=== PATIENT | female | born 1950 | race Hispanic/Latino ===

== ENCOUNTER 2021-08-04 17:58 | Observation (INO) | payer OTHER ==
[2021-08-04] MEDS ORDERED: NA CHLORIDE 0.9% 1,000 ML ONE (18:44)
--- NOTE | 2021-08-04 20:10 | RAD REPORT ---
EXAM DESCRIPTION: RAD - Chest Single View - 08/04/2021 8:02 pm CLINICAL HISTORY: syncope COMPARISON: Chest Pa And Lat (2 Views) dated 01/14/2017; Abdomen 1 View (KUB) dated 08/28/2016 FINDINGS: Lines: Pacemaker/ICD. Lungs: Pulmonary vascular congestion. Pleural: No significant pleural effusions or pneumothorax. Cardiac: Mild cardiomegaly. Bones: No acute fractures. Other: IMPRESSION: Pulmonary vascular congestion without krystal pulmonary edema.
[2021-08-04 20:18] LABS: Urine Blood Trace-intact (Negative); Urine Glucose Negative (Negative); Urine Protein Negative (Negative)
[2021-08-04 20:31] LABS: Protime INR 1.08
[2021-08-04 20:39] LABS: ALT/SGPT 26 U/L (12-78); AST/SGOT 18 U/L (15-37); Albumin 3.3 g/dL (3.4-5.0); Alkaline Phosphatase 66 U/L (45-117); BUN Blood Urea Nitrogen 16 mg/dL (7-18); Bicarbonate 28 mmol/L (21-32); Bilirubin Direct < 0.1 mg/dL (0-0.2); Bilirubin Total 0.4 mg/dL (0.2-1.0); CKMB Creatine Kinase MB 1.4 ng/mL (1.0-3.6); Creatine Phosphokinase 160 U/L (26-192); Glucose Level 138 mg/dL (74-106); Lipase 102 U/L (73-393); Magnesium 2.2 mg/dL (1.8-2.4); Potassium 3.5 mmol/L (3.5-5.1); Sodium Level 145 mmol/L (136-145); Troponin (Emerg Dept Use Only) < 0.02 ng/mL (0.0-0.045)
[2021-08-04 20:40] LABS: Urine Bacteria <20 /HPF (<20); Urine Mucus 1+ /HPF (NONE SEEN); Urine RBC <5 /HPF (NONE SEEN)
[2021-08-04 20:57] LABS: Absolute Lymphocytes (CBC) 2.7 K/uL (0.7-4.9); Basophils % 0.5 % (0-1.3); Hematocrit 39.2 % (36.0-45.0); Lymphocytes % 31.8 % (15.3-44.8); MPV 7.2 fL (7.6-11.3); RBC Red Blood Cell Count 4.15 M/uL (3.86-4.86)
--- NOTE | 2021-08-04 21:32 | EDPHYS ---
Physician Documentation [facility] Name: Lisandra Gilman Age: 71 yrs Sex: Female : 1950 Arrival Date: 08/04/2021 Time: 18:14 Bed 4 Private MD: ED Physician Kimberly Stanford HPI: 08/04 18:25 This 71 yrs old Female presents to ER via EMS with complaints of Syncope. cp 18:25 The patient has experienced syncope, became unresponsive. Onset: The symptoms/episode cp began/occurred today. Duration: This was a single episode, that lasted an unknown period of time. Context: the episode(s) was witnessed, by family, , occurred at home, occurred while the patient was sitting at computer. Just prior to the episode the patient experienced lightheadedness. Associated injury: The patient did not suffer any apparent associated injury. Associated signs and symptoms: Pertinent negatives: abdominal pain, chest pain, palpitations. Historical: - Allergies: 19:05 No Known Allergies; jl7 - Home Meds: 18:15 carvedilol 25 mg oral tab 1 tab 2 times per day [Active]; clopidogrel 75 mg oral tab 1 bp tab once daily [Active]; potassium chloride 10 mEq Oral cpER 2 caps once daily [Active]; terbinafine HCl 250 mg oral tab 1 tab once daily [Active]; isosorbide mononitrate 30 mg Oral Tb24 1 tab once daily [Active]; Entresto 24-26 mg oral tab 1 tab 2 times per day [Active]; venlafaxine 150 mg oral tr24 1 tab once daily [Active]; - PMHx: 18:20 Depression; GALLSTONES; High Cholesterol; Hypertension; Kidney stones; ss 18:15 Depression; GALLSTONES; High Cholesterol; Hypertension; Kidney stones; bp - PSHx: 18:15 Repair of inguinal hernia; Implantation of cardiac pacemaker; bp - Immunization history:: Adult Immunizations up to date. - Social history:: Smoking status: Patient denies any tobacco usage or history of. ROS: 18:30 Constitutional: Negative for body aches, chills, fever, poor PO intake. cp 18:30 Eyes: Negative for injury, pain, redness, and discharge. cp 18:30 ENT: Negative for ear pain, sore throat, difficulty swallowing, difficulty handling secretions. 18:30 Cardiovascular: Negative for chest pain, edema, palpitations. 18:30 Respiratory: Negative for cough, shortness of breath, wheezing. 18:30 Abdomen/GI: Negative for abdominal pain, nausea, vomiting, and diarrhea. 18:30 Back: Negative for pain at rest, pain with movement. 18:30 : Negative for urinary symptoms. 18:30 Neuro: Positive for syncope, Negative for altered mental status, headache, weakness. 18:30 All other systems are negative. Exam: 18:25 ECG was reviewed by the Attending Physician. cp 18:35 Constitutional: The patient appears in no acute distress, alert, awake, cp non-diaphoretic, non-toxic, well developed, well nourished, obese. 18:35 Head/Face: Normocephalic, atraumatic. cp 18:35 Eyes: Periorbital structures: appear normal, Pupils: equal, round, and reactive to light and accomodation, Extraocular movements: intact throughout, Conjunctiva: normal, no exudate, no injection, Sclera: no appreciated abnormality, Lids and lashes: appear normal, bilaterally. 18:35 ENT: External ear(s): are unremarkable, Nose: is normal, Mouth: Lips: moist, Oral mucosa: moist, Posterior pharynx: Airway: no evidence of obstruction, patent. 18:35 Neck: ROM/movement: is normal, is supple, without pain, no range of motions limitations, no meningismus, no nuchal rigidity. 18:35 Chest/axilla: Inspection: normal, Palpation: is normal, no crepitus, no tenderness. 18:35 Cardiovascular: Rate: normal, Rhythm: regular, Edema: is not appreciated, JVD: is not appreciated. 18:35 Respiratory: the patient does not display signs of respiratory distress, Respirations: normal, no use of accessory muscles, no retractions, labored breathing, is not present, Breath sounds: are clear throughout, no decreased breath sounds, no stridor, no wheezing. 18:35 Abdomen/GI: Inspection: abdomen appears normal, Bowel sounds: active, all quadrants, Palpation: abdomen is soft and non-tender, in all quadrants. 18:35 Back: pain, is absent, ROM is normal. 18:35 Neuro: Orientation: to person, place \T\ time. Mentation: is normal, Cerebellar function: is grossly normal, Motor: moves all fours, strength is normal, Sensation: is normal. Vital Signs: 18:15 BP 58 / 38; Weight 99.79 kg; Height 5 ft. 2 in. (157.48 cm); bp 18:15 BP 96 / 48; Pulse 60; Resp 17; Pulse Ox 96% ; bp 18:30 BP 87 / 48; Pulse 60; Resp 17; Pulse Ox 96% ; bp 19:45 BP 102 / 57; Pulse 60; Resp 16; Pulse Ox 93% on R/A; Pain 0/10; tw5 20:15 BP 131 / 72; Pulse 61; Resp 14; Pulse Ox 100% on R/A; Pain 0/10; tw5 18:15 Body Mass Index 40.24 (99.79 kg, 157.48 cm) bp MDM: 19:00 Patient medically screened. 19:00 Differential Diagnosis: cardiac arrhythmia, cerebrovascular accident, GI bleed, cp seizure, sepsis, transient ischemic attack, vasovagal episode. 21:20 Data reviewed: vital signs, nurses notes, lab test result(s), EKG, radiologic studies, cp plain films. 21:20 Test interpretation: by ED physician or midlevel provider: ECG, plain radiologic cp studies. 21:25 Physician consultation: Kendall CHAIREZ was contacted at 21:15, regarding admission, to the telemetry unit. patient's condition. 21:25 Response to treatment: the patient's symptoms have markedly improved after treatment, and as a result, I will admit patient. 08/04 18:21 Order name: Basic Metabolic Panel [facility] 08/04 18:21 Order name: CBC with Diff [facility] 08/04 18:21 Order name: CPK [facility] 08/04 18:21 Order name: Ckmb [facility] 08/04 18:21 Order name: Hepatic Function; Complete Time: 21:09 [facility] 08/04 21:10 Interpretation: Normal except: ALB 3.3; GLOB 3.7; A/G 0.9. cp 08/04 18:21 Order name: Lipase; Complete Time: 21:09 [facility] 08/04 18:21 Order name: Magnesium; Complete Time: 21:09 [facility] 08/04 18:21 Order name: Protime (+inr); Complete Time: 21:09 [facility] 08/04 18:21 Order name: Ptt, Activated; Complete Time: 21:09 sc2 08/04 18:21 Order name: Troponin (emerg Dept Use Only); Complete Time: 21:09 sc2 08/04 18:21 Order name: Basic Metabolic Panel; Complete Time: 21:09 EDMS 08/04 21:10 Interpretation: Normal except: CL 109; GLUC 138; GFR 67. 08/04 18:21 Order name: CBC with Automated Diff; Complete Time: 21:09 EDMS 08/04 21:10 Interpretation: Normal except: MPV 7.2. cp 08/04 18:21 Order name: Creatine Phosphokinase; Complete Time: 21:09 EDMS 08/04 18:21 Order name: CKMB Creatine Kinase MB; Complete Time: 21:09 EDAL 08/04 18:21 Order name: EKG; Complete Time: 18:22 sc2 08/04 18:21 Order name: Cardiac monitoring; Complete Time: 18:21 sc2 08/04 18:21 Order name: EKG - Nurse/Tech; Complete Time: 18:21 sc2 08/04 19:01 Order name: Urine Microscopic Only; Complete Time: 21:09 08/04 21:10 Interpretation: Normal except: SQEPI 5-10. 08/04 19:01 Order name: Lactate 08/04 19:01 Order name: Procalcitonin; Complete Time: 21:09 08/04 21:11 Interpretation: Reviewed. 08/04 19:01 Order name: Blood Culture Adult (2) cp 08/04 19:02 Order name: Lactate; Complete Time: 20:38 EDAL 08/04 20:38 Interpretation: Abnormal: LAC 2.3. cp 08/04 19:46 Order name: Chest Single View XRAY; Complete Time: 20:26 cp 08/04 20:18 Order name: Urine Dipstick-Ancillary; Complete Time: 20:26 EDAL 08/04 20:26 Interpretation: Normal except: UBLD Trace-intact. cp 08/04 21:14 Order name: SARS-COV-2 RT PCR EDMS 08/04 21:51 Order name: CONS Physician Consult EDMS 08/04 22:47 Order name: NT PRO-BNP EDMS 08/04 22:54 Order name: Glucose, Ancillary Testing EDMS 08/04 18:21 Order name: IV Saline Lock; Complete Time: 19:01 ma2 08/04 18:21 Order name: Labs collected and sent; Complete Time: 20:13 ma2 08/04 18:21 Order name: NPO; Complete Time: 19: ma2 08/04 18:21 Order name: O2 Per Protocol; Complete Time: 18:21 ma2 08/04 18:21 Order name: O2 Sat Monitoring; Complete Time: 18: ma2 08/04 18:21 Order name: Urine Dipstick-Ancillary (obtain specimen); Complete Time: 20: ma2 EC:25 Rate is 60 beats/min. Rhythm is regular, Paced. QRS interval is prolonged at 202 msec. cp QT interval is prolonged at 522 msec. T waves are Inverted in lead aVL. Interpreted by me. Reviewed by me. Administered Medications: 19:38 Drug: NS 0.9% 1000 ml Route: IV; Rate: 1 bolus; Site: right forearm; tw5 20:25 Follow up: IV Status: Order to discontinue infusion; IV Intake: 500ml ; rate changed to tw5 50 ml per hour per providers orders Disposition Summary: 08/04/21 21:31 Hospitalization Ordered Hospitalization Status: Observation cp Provider: Aj Phillips cp Location: Telemetry/MedSurg (Inpatient) cp Condition: Stable cp Problem: new cp Symptoms: have improved cp Bed/Room Type: Standard cp Room Assignment: 229(08/04/21 21:57) Diagnosis - Syncope cp - Hypotension, unspecified cp Forms: - Medication Reconciliation Form cp - SBAR form cp Addendum: 08/09/2021 15:38 Co-signature as Attending Physician, Kimberly Stanford MD PA/CHECK CASHIER's history reviewed, m a2 patient interviewed, and examined. I agree with assessment and care plan and confirm the diagnosis (es) above. Signatures: Dispatcher [employer] EDPorsha Louis RN RN mw Smirch, Shelby, RN RN ss Page, Corey, PA PA cp Leal, Jahala, RN RN jl7 Dileep Yoo RN RN bp Alzahri, Mohammad, MD MD sc2 Qi Valentine tw5 Corrections: (The following items were deleted from the chart) 08/04 18:25 18:15 Home Meds: Coreg 25 mg Oral tab 1 tab 2 times per day; bp bp 21:10 21:10 Normal except. cp cp 21:14 19:47 CORONAVIRUS+MR.LAB.BRZ ordered. EDMS EDMS : 21:13 ECG was reviewed by the Attending Physician. vi cp 21:57 21:31 vi holden
--- NOTE | 2021-08-04 21:32 | ER ---
Nurse's Notes [facility] Name: Lisandra Gilman Age: 71 yrs Sex: Female : 1950 Arrival Date: 08/04/2021 Time: 18:14 Bed 4 Private MD: Diagnosis: Syncope;Hypotension, unspecified Presentation: 08/04 18:15 Chief complaint: EMS states: UNRESPONSIVE FOR 10 MIN AT HOME, NOTABLY NON-RESPONSIVE TO bp NOXIOUS STIMULI, PALE, DIAPHORETIC AND HYPOTENSIVE PER EMS. FAMILY STATES SAME IN PAST 2/2 HTN MEDICATIONS. 18:15 Coronavirus screen: At this time, the client does not indicate any symptoms associated bp with coronavirus-19. Ebola Screen: No symptoms or risks identified at this time. Initial Sepsis Screen: Does the patient meet any 2 criteria? Systolic BP < 90 mmHg. No. Patient's initial sepsis screen is negative. Does the patient have a suspected source of infection? No. Patient's initial sepsis screen is negative. Risk Assessment: Do you want to hurt yourself or someone else? Patient reports no desire to harm self or others. Onset of symptoms was August 04, 2021 at 17:30. Care prior to arrival: Medication(s) given: Normal saline infusion, 500 mL, IV initiated. 20 GA, in the right forearm. 18:15 Method Of Arrival: EMS: [facility] bp 18:15 Acuity: BBO 2 bp Triage Assessment: 18:15 General: Appears in no apparent distress. comfortable, obese, Behavior is calm, bp cooperative, appropriate for age. Pain: Denies pain. EENT: No deficits noted. Neuro: Level of Consciousness is awake, alert, obeys commands, Oriented to Appropriate for age Reports a syncopal episode. Cardiovascular: No deficits noted. Respiratory: No deficits noted. GI: No signs and/or symptoms were reported involving the gastrointestinal system. : No signs and/or symptoms were reported regarding the genitourinary system. Derm: No deficits noted. Musculoskeletal: No deficits noted. Historical: - Allergies: 19:05 No Known Allergies; jl7 - Home Meds: 18:15 carvedilol 25 mg oral tab 1 tab 2 times per day [Active]; clopidogrel 75 mg oral tab 1 bp tab once daily [Active]; potassium chloride 10 mEq Oral cpER 2 caps once daily [Active]; terbinafine HCl 250 mg oral tab 1 tab once daily [Active]; isosorbide mononitrate 30 mg Oral Tb24 1 tab once daily [Active]; Entresto 24-26 mg oral tab 1 tab 2 times per day [Active]; venlafaxine 150 mg oral tr24 1 tab once daily [Active]; - PMHx: 18:20 Depression; GALLSTONES; High Cholesterol; Hypertension; Kidney stones; ss 18:15 Depression; GALLSTONES; High Cholesterol; Hypertension; Kidney stones; bp - PSHx: 18:15 Repair of inguinal hernia; Implantation of cardiac pacemaker; bp - Immunization history:: Adult Immunizations up to date. - Social history:: Smoking status: Patient denies any tobacco usage or history of. Screenin:15 Abuse screen: Denies threats or abuse. Denies injuries from another. Nutritional bp screening: No deficits noted. Tuberculosis screening: No symptoms or risk factors identified. Fall Risk None identified. Assessment: 18:15 General: SEE TRIAGE NOTE. bp 19:14 Reassessment: PHLEBOTOMY CONTACTED FOR BLOOD DRAW. bp 19:33 General: Phlebtomy at the bedside.. tw5 19:38 General: Reports " I am feeling a lot better, I am awake now". tw5 19:44 Pain: Pain. Neuro: Level of Consciousness is awake, alert, obeys commands, Oriented to tw5 person, place, time, situation. Cardiovascular: Rhythm is. 20:15 Respiratory: Airway is patent Trachea midline Respiratory effort is even, unlabored. tw5 Vital Signs: 18:15 BP 58 / 38; Weight 99.79 kg; Height 5 ft. 2 in. (157.48 cm); bp 18:15 BP 96 / 48; Pulse 60; Resp 17; Pulse Ox 96% ; bp 18:30 BP 87 / 48; Pulse 60; Resp 17; Pulse Ox 96% ; bp 19:45 BP 102 / 57; Pulse 60; Resp 16; Pulse Ox 93% on R/A; Pain 0/10; tw5 20:15 BP 131 / 72; Pulse 61; Resp 14; Pulse Ox 100% on R/A; Pain 0/10; tw5 18:15 Body Mass Index 40.24 (99.79 kg, 157.48 cm) bp ED Course: 18:14 Patient arrived in ED. tt3 18:15 Patient has correct armband on for positive identification. Bed in low position. Call bp light in reach. Side rails up X2. 18:15 Maintain EMS IV. Dressing intact. Good blood return noted. Site clean \\T\\ dry. Gauge \\T\\ bp site: 20 GA R FA. 18:16 Dileep Yoo, RN is Primary Nurse. bp 18:19 Triage completed. bp 18:20 Arm band placed on left wrist. ss 18:22 EKG done, by ED staff, reviewed by Kimberly Stanford MD. jl7 18:54 Adeel Gama PA is PHCP. cp 18:54 Kimberly Stanford MD is Attending Physician. cp 19:45 color television console monitor on. Pulse ox on. NIBP on. Door closed. Noise minimized. Lights dimmed. tw5 Moved to private room. Warm blanket given. Verbal reassurance given. 20:02 Chest Single View XRAY In Process Unspecified. EDMS 20:12 Lactate Sent. df1 20:12 Blood Culture Adult (2) Sent. df1 20:12 Procalcitonin Sent. df1 20:12 Lactate Sent. df1 20:12 CKMB Creatine Kinase MB Sent. df1 20:12 Basic Metabolic Panel Sent. df1 20:12 CBC with Automated Diff Sent. df1 20:12 Creatine Phosphokinase Sent. df1 20:13 Basic Metabolic Panel Sent. df1 20:13 CBC with Diff Sent. df1 20:13 CPK Sent. df1 20:13 Ckmb Sent. df1 20:13 Hepatic Function Sent. df1 20:13 Lipase Sent. df1 20:13 Magnesium Sent. df1 20:13 Protime (+inr) Sent. df1 20:13 Ptt, Activated Sent. df1 20:13 Troponin (emerg Dept Use Only) Sent. df1 20:15 Urine collected: clean catch specimen, clear, COVID swab sent to lab. tw5 20:17 Blood Culture Adult (2) Sent. tw5 20:17 Procalcitonin Sent. tw5 20:17 CKMB Creatine Kinase MB Sent. tw5 20:17 Urine Microscopic Only Sent. tw5 20:17 Basic Metabolic Panel Sent. tw5 20:17 CBC with Automated Diff Sent. tw5 20:17 Creatine Phosphokinase Sent. tw5 20:17 Troponin (emerg Dept Use Only) Sent. tw5 20:17 Ptt, Activated Sent. tw5 20:17 Protime (+inr) Sent. tw5 20:17 Hepatic Function Sent. tw5 20:17 Lipase Sent. tw5 20:17 Magnesium Sent. tw5 20:38 Notified Nurse Practitioner and/or Physician Cuff Setter Lockstitch of a critical lab result(s), bb lactate of 2.3 Adeel CHAIREZ notified. 21:30 Aj Phillips is Hospitalizing Provider. cp 22:08 No provider procedures requiring assistance completed. df1 23:06 Patient admitted, IV remains in place. tw5 Administered Medications: 19:38 Drug: NS 0.9% 1000 ml Route: IV; Rate: 1 bolus; Site: right forearm; tw5 20:25 Follow up: IV Status: Order to discontinue infusion; IV Intake: 500ml ; rate changed to tw5 50 ml per hour per providers orders Intake: 20:25 IV: 500ml; Total: 500ml. tw5 Outcome: 21:31 Decision to Hospitalize by Provider. cp 23:06 Admitted to Tele accompanied by tech. tw5 23:06 Condition: stable 23:06 Instructed on the need for admit. 23:07 Patient left the ED. tw Signatures: Dispatcher [employer] EDMS Malika Santiago RN RN bb Smirch, Shelby RN Adeel Echevarria PA PA cp Naila Hackett RN RN Dileep Whyte RN RN Ehsan Kimble tt3 Madyson Dunham df1 Serge Qi tw5 Corrections: (The following items were deleted from the chart) 18:25 18:15 Home Meds: Coreg 25 mg Oral tab 1 tab 2 times per day; bp bp 20:16 20:15 BP 131 / 72; Pulse 61bpm; Resp 14bpm; Pulse Ox 94% RA; Pain 0/10; tw5 tw5 21:14 20:17 CORONAVIRUS+MR.LABTHAD drawn and sent. tw5 EDMS
[2021-08-04] MEDS ORDERED: ONDANSETRON 4 MG/2 ML VIAL IV PRN (22:19)
[2021-08-04] MEDS ORDERED: ALBUTEROL 2.5 MG/3 ML NEB SOL NEB PRN (22:19)
[2021-08-04] MEDS ORDERED: ACETAMINOPHEN 500 MG TAB PO PRN (22:19)
--- NOTE | 2021-08-04 22:31 | P.HP ---
Certification for Inpatient Patient admitted to: Observation With expected LOS: <2 Midnights Patient will require the following post-hospital care: None Practitioner: I am a practitioner with admitting privileges, knowledge of patient current condition, hospital course, and medical plan of care. Services: Services provided to patient in accordance with Admission requirements found in Title 42 Section 412.3 of the Code of Federal Regulations Patient History Date of Service: 08/04/21 Reason for admission: syncope History of Present Illness: Ms. Gilman is a 71 yo F with CAD s/p stent placement, CHF s/p pacemaker/defibrillator and HTN who presents after a syncopal episode. She has been prescribed 25mg BID of carvediolol, and has had hypotensive episodes in response to the medication over the past 5 months so she was instructed to take a quarter pill, increase to half a pill and then take a full one. Today was the first day she was instructed to take a full pill. She took 25mg of carvedilol then after she ate she started to have vision changes. That is the last thing she remembers before waking up in the ambulance. Her says he tried to take her BP at this time but wasn't able to get a reading. She became very cold and clammy and unresponsive so he called 911. She opened her eyes in the ambulance, but didn't respond until arrival. Upon arrival her BP was 58/38, and she received 1L of fluids in the ED. BP now 131/72 at bedside. Currently having no symptoms. Allergies No Known Allergies Allergy (Verified 01/14/17 16:40) Home Medications: Esomeprazole Mag Trihydrate [Nexium] 40 mg PO DAILY 01/14/17 Fesoterodine Fumarate [Toviaz] 4 mg PO DAILY 01/14/17 Lisinopril/Hydrochlorothiazide [Lisinopril-Hctz 20-12.5 mg Tab] 1 tab PO DAILY 01/14/17 Rosuvastatin [Crestor*] 40 mg PO BEDTIME 01/14/17 Venlafaxine HCl [Venlafaxine HCl ER] 150 mg PO DAILY 01/14/17 Amox/Clavulanate [Augmentin 875-125 Tab] 875 mg PO BID #12 tab 01/17/17 Codeine/APAP [Tylenol W/Codeine #3 tab] 1 tab PO Q4HP PRN #30 tab 01/17/17 - Past Medical/Surgical History -: depression -: HTN -: BLADDER INFECTION -: RENAL STONES -: CAD -: CHF -: HYSTERECTOMY -: ARTHROSCOPIC LEFT KNEE -: pacemaker/defibrillator -: cardiac stent -: natalya Psychosocial/ Personal History: - Social History Smoking Status: Never smoker Alcohol use: No CD- Drugs: No Caffeine use: No Place of Residence: Home Review of Systems 10-point ROS is otherwise unremarkable General: Sweats, Malaise, As per HPI Eyes: Vision Change, As per HPI ENT: Unremarkable Respiratory: Unremarkable Cardiovascular: Light Headedness Gastrointestinal: Unremarkable Genitourinary: Unremarkable Musculoskeletal: Unremarkable Integumentary: Unremarkable Neurological: Unremarkable Lymphatics: Unremarkable Physical Examination - Physical Exam General: Alert, In no apparent distress HEENT: Atraumatic, PERRLA, Mucous membr. moist/pink, EOMI, Sclerae nonicteric Neck: Supple, 2+ carotid pulse no bruit, No LAD, Without JVD or thyroid abnormality Respiratory: Clear to auscultation bilaterally, Normal air movement Cardiovascular: Regular rate/rhythm, Normal S1 S2 Gastrointestinal: Normal bowel sounds, No tenderness Musculoskeletal: No tenderness Integumentary: No rashes Neurological: Normal speech, Normal strength at 5/5 x4 extr, Normal tone, Normal affect Lymphatics: No axilla or inguinal lymphadenopathy - Studies Laboratory Data (last 24 hrs) 08/04/21 20:49: WBC 8.60, Hgb 13.0, Hct 39.2, Plt Count 229 08/04/21 20:00: PT 12.4, INR 1.08, APTT 19.8 L 08/04/21 20:00: Sodium 145, Potassium 3.5, BUN 16, Creatinine 0.84, Glucose 138 H, Magnesium 2.2, Total Bilirubin 0.4, AST 18, ALT 26, Alkaline Phosphatase 66, Lipase 102 Assessment and Plan - Problems (Diagnosis) (1) HTN (hypertension) Current Visit: Yes Status: Chronic Qualifiers: Hypertension type: primary hypertension Qualified Code(s): I10 - Essential (primary) hypertension (2) CHF (congestive heart failure) Current Visit: Yes Status: Chronic Qualifiers: Heart failure type: unspecified Heart failure chronicity: chronic Qualif ied Code(s): I50.9 - Heart failure, unspecified (3) CAD (coronary artery disease) Current Visit: Yes Status: Chronic Qualifiers: Coronary Disease-Associated Artery/Lesion type: [place] artery [place] vs. transplanted heart: [place] heart Associated angina: without angina Qualified Code(s): I25.10 - Atherosclerotic heart disease of [place] coronary artery without angina pectoris (4) Syncope Current Visit: Yes Status: Acute Qualifiers: Syncope type: unspecified Qualified Code(s): R55 - Syncope and collapse (5) Hypotension Current Visit: Yes Status: Chronic Qualifiers: Hypotension type: unspecified hypotension type Qualified Code(s): I95.9 - Hypotension, unspecified - Plan cardiology consulted, on tele repeat troponin and EKG in the AM orthostatic VS pending, ECHO pending, BNP pending BP stable, continue to monitor, hold BP medications reconcile and continue other home medications DVT ppx Discharge Plan: Home Plan to discharge in: 24 Hours - Advance Directives Does patient have a Living Will: No Does patient have a Durable POA for Healthcare: No - Code Status/Comfort Care Code Status Assessed: Yes (full code ) Critical Care: No Time Spent Managing Pts Care (In Minutes): 70
[2021-08-04] MEDS ORDERED: POTASSIUM CL SA 10 MEQ TAB PO ONE (22:52)
[2021-08-04 23:45] VITALS: BMI 42.1
[2021-08-05 05:56] LABS: Absolute Lymphocytes (CBC) 3.2 K/uL (0.7-4.9); Basophils % 0.4 % (0-1.3); Lymphocytes % 49.9 % (15.3-44.8); RBC Red Blood Cell Count 4.03 M/uL (3.86-4.86)
[2021-08-05 06:19] LABS: ALT/SGPT 22 U/L (12-78); AST/SGOT 11 U/L (15-37); Alkaline Phosphatase 62 U/L (45-117); BUN Blood Urea Nitrogen 12 mg/dL (7-18); Bicarbonate 25 mmol/L (21-32); Bilirubin Total 0.4 mg/dL (0.2-1.0); Glucose Level 90 mg/dL (74-106); Magnesium 2.2 mg/dL (1.8-2.4); Phosphorus 3.5 mg/dL (2.5-4.9); Potassium 3.7 mmol/L (3.5-5.1); Protein, Total 6.8 g/dL (6.4-8.2); Sodium Level 143 mmol/L (136-145); Troponin I < 0.02 ng/mL (0.0-0.045)
[2021-08-05 06:25] LABS: HDL Cholesterol 65 mg/dL (40-60); LDL Cholesterol, Calculated 67 (<130)
[2021-08-05] MEDS: INSULIN -REGULAR HUMAN 50 UNIT/0.5 ML ML SQ SCH ×2 (07:30→11:30)
[2021-08-05 07:49] LABS: Blood Morphology Comment NOT SEEN (NOT SEEN); Platelet Estimate ADEQ
[2021-08-05] MEDS ORDERED: ENOXAPARIN 40 MG/0.4 ML SQ SCH (09:00)
[2021-08-05] MEDS ORDERED: POTASSIUM CL SA 10 MEQ TAB PO ONE (09:00)
[2021-08-05] MEDS ORDERED: CLOPIDOGREL 75 MG TABLET PO SCH (10:10)
[2021-08-05] MEDS ORDERED: VENLAFAXINE HCL XR 75 MG CAP PO SCH (11:00)
[2021-08-05] MEDS ORDERED: terbinafine HCL 250 MG TAB PO SCH (11:00)
[2021-08-05 11:52] VITALS: O2SAT 97
[2021-08-05 11:56] VITALS: TEMP 98.7
[2021-08-05] MEDS ORDERED: SACUBITRIL/VALSARTAN 24/26 MG TAB PO SCH (13:03)
[2021-08-05] MEDS ORDERED: carvediloL 3.125 MG TAB PO SCH (13:03)
--- NOTE | 2021-08-05 13:12 | P.DS ---
Admission Date: 08/04/21 Discharge Date: 08/05/21 Reason for Admission: syncope - Problems (1) Syncope Current Visit: Yes Status: Acute Qualifiers: Syncope type: unspecified Qualified Code(s): R55 - Syncope and collapse (2) CAD (coronary artery disease) Current Visit: Yes Status: Chronic Qualifiers: Coronary Disease-Associated Artery/Lesion type: inupiat artery [place] vs. transplanted heart: inupiat heart Associated angina: without angina Qualified Code(s): I25.10 - Atherosclerotic heart disease of inupiat coronary artery without angina pectoris (3) CHF (congestive heart failure) Current Visit: Yes Status: Chronic Qualifiers: Heart failure type: unspecified Heart failure chronicity: chronic Qualified Code(s): I50.9 - Heart failure, unspecified (4) HTN (hypertension) Current Visit: Yes Status: Chronic Qualifiers: Hypertension type: primary hypertension Qualified Code(s): I10 - Essential (primary) hypertension (5) Hypotension Current Visit: Yes Status: Chronic Qualifiers: Hypotension type: unspecified hypotension type Qualified Code(s): I95.9 - Hypotension, unspecified Brief History of Present Illness: Ms. Gilman is a 71 yo F with CAD s/p stent placement, systolic CHF s/p pacemaker/defibrillator and HTN who presents after a syncopal episode. She has been prescribed 25mg BID of carvediolol, and has had hypotensive episodes in response to the medication over the past 5 months so she was instructed to take a quarter pill, increase to half a pill and then take a full one. Patient to a full pill and 15 minutes later became unresponsive. Her says he tried to take her BP at this time but wasn't able to get a reading. called 911. BP noted to be 58/38, and she received 1L of fluids in the ED. BP improved to 131/72. Patient was fully awake before arrival to the ED and had no symptoms during examination for admission. Hospital Course: Patient placed under observation on the medical floor. Patient's troponin was negative. She was asymptomatic during the hospital stay. She became hypotensive with systolic blood pressure up to 141. Coreg restarted at 12.5 mg twice daily. Also resumed Entresto. His blood pressure readings were stable on the Coreg and Entresto. Has syncopal episode is drug induced secondary to her antihypertensives. Patient deemed stable for discharge. Vital Signs/Physical Exam: Temp Pulse Resp BP Pulse Ox 98.7 F 60 18 141/75 H 97 08/05/21 11:55 08/05/21 11:55 08/05/21 11:55 08/05/21 11:55 08/05/21 11:55 General: Alert, In no apparent distress, Oriented x3 HEENT: Mucous membr. moist/pink, Sclerae nonicteric Neck: JVD not distended Respiratory: Clear to auscultation bilaterally, Normal air movement Cardiovascular: No edema, Normal pulses, Regular rate/rhythm, Normal S1 S2 Gastrointestinal: Normal bowel sounds, Soft and benign, Non-distended, No tenderness Musculoskeletal: No swelling Integumentary: No rashes Neurological: Normal strength at 5/5 x4 extr Laboratory Data at Discharge: WBC 6.40 K/uL (4.3-10.9) D 08/05/21 05:31 Hgb 12.7 g/dL (12.0-15.0) 08/05/21 05:31 Hct 38.0 % (36.0-45.0) 08/05/21 05:31 Plt Count 234 K/uL (152-406) 08/05/21 05:31 PT 12.4 SECONDS (9.5-12.5) 08/04/21 20:00 INR 1.08 08/04/21 20:00 APTT 19.8 SECONDS (24.3-36.9) L 08/04/21 20:00 Sodium 143 mmol/L (136-145) 08/05/21 05:31 Potassium 3.7 mmol/L (3.5-5.1) 08/05/21 05:31 BUN 12 mg/dL (7-18) 08/05/21 05:31 Creatinine 0.52 mg/dL (0.55-1.3) L 08/05/21 05:31 Glucose 90 mg/dL (74-106) 08/05/21 05:31 Phosphorus 3.5 mg/dL (2.5-4.9) 08/05/21 05:31 Magnesium 2.2 mg/dL (1.8-2.4) 08/05/21 05:31 Total Bilirubin 0.4 mg/dL (0.2-1.0) 08/05/21 05:31 AST 11 U/L (15-37) L 08/05/21 05:31 ALT 22 U/L (12-78) 08/05/21 05:31 Alkaline Phosphatase 62 U/L (45-117) 08/05/21 05:31 Troponin I < 0.02 ng/mL (0.0-0.045) 08/05/21 05:31 Triglycerides 95 mg/dL (<150) 08/05/21 05:31 Cholesterol 151 mg/dL (<200) 08/05/21 05:31 HDL Cholesterol 65 mg/dL (40-60) H 08/05/21 05:31 Cholesterol/HDL Ratio 2.32 08/05/21 05:31 Lipase 102 U/L (73-393) 08/04/21 20:00 Home Medications: Venlafaxine HCl [Venlafaxine HCl ER] 150 mg PO DAILY 01/14/17 Alendronate Sodium [Fosamax] 1 tab PO EVERY 7TH DAY 08/04/21 Clopidogrel Bisulfate [Plavix*] 1 tab PO DAILY 08/04/21 Famotidine 20 mg PO BID 08/04/21 Isosorbide Mononitrate [Isosorbide Mononitrate ER] 30 mg PO DAILY 08/04/21 Potassium Chloride 1 tab PO BID 08/04/21 Sacubitril/Valsartan [Entresto 24 mg-26 mg Tablet] 1 tab PO BID 08/04/21 terbinafine HCL [Terbinafine HCl] 1 tab PO DAILY 08/04/21 carvediloL [Coreg] 12.5 mg PO BID #60 tab 08/05/21 New Medications: carvediloL [Coreg] 12.5 mg PO BID #60 tab Diet: AHA Activity: Ad viraj Followup: NONE,NONE [Primary Care Provider] -
[2021-08-05 14:46] VITALS: BP 154/75
--- NOTE | 2021-08-05 20:39 | CON ---
Date of Consultation: 08/05/2021 Reason For Consultation: Syncope. History Of Present Illness: A 71-year-old female with history of coronary artery disease status post recent stent placement. She has congestive heart failure with ICD and BiV pacemaker in place, prese nted with syncopal episode. She apparently took a 25 mg of carvedilol. 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 The patient also is willing the medicines that she has taken, she is on Imdur as well as Entresto. On arrival to the emergency room, her blood pressure was 58/38, currently with a normal blood pressure. She feels much better. Past Medical History: Hypertension, congestive heart failure, coronary artery disease, and dyslipide christine. Medications: Refer reconciliation sheet for detailed list. Allergies: NO KNOWN DRUG ALLERGIES. Family History: No mature coronary artery disease or cancer. Social History: She does not smoke or drink. Does not use any drugs. Review of Systems: All systems reviewed and they were all negative except for mentioned in HPI. Physical Examination: Vital signs: Temperature is 98.7, pulse 60, breathing at 18, blood pressure 141/75, and saturating 9 7. General: Pleasant on elderly female, in no apparent distress. Head and Neck: Pupils are equal and reactive to light. Intact eye movements. No JVD. No cervical lymphadenopathy. Neck: Supple. Thyroid is not enlarged. Lungs: Clear to auscultation bilaterally. No rhonchi, rales, or crackles. No accessory muscle use. Heart: Regular rate and rhythm. No extra sounds. Abdomen: Soft, nontender. Bowel sounds positive. No organomegaly. No masses or hernia. No rigidi ty or rebound. Extremities: No edema, clubbing, or cyanosis. Intact pulses. Skin: No rash. Neurologic: Alert, awake, and oriented x3. No acute infiltrate. Investigations: Labs were reviewed. Assessment And Recommendations: Syncope due to hypotension. Symptoms have resolved, but blood press ure has improved. I asked her to discontinue the Imdur and to take half a dose of the Coreg twice a day and to continue Entresto. She seems to have a very low ejection fraction, however, the exact sta tus is not known and if the patient's blood pressure holds on the above changes, then she can be grad ually titrated if needed in the future to follow up with her burn nurse within a few days post disc harge to take control over medications and adjust them slowly as needed. /RAJ Voice ID: [id number] Report ID: [id number]
[2021-08-05] MEDS ORDERED: POTASSIUM CL SA 10 MEQ TAB PO SCH (21:00)
[2021-08-05] MEDS ORDERED: FAMOTIDINE 20 MG TAB PO SCH (21:00)
[2021-08-06] MEDS ORDERED: ISOSORBIDE MONO SR 30 MG TAB PO SCH (09:00)
--- NOTE | 2021-08-07 18:32 | EKG ---
Test Date: 2021-08-04 Test Time: 18:17:07 Welder Assistant: TANK MEASUREMENT RESULTS: Intervals: Rate: 60 IA: QRSD: 202 QT: 522 QTc: 522 [place]: P: IA: QRS: -78 T: 94 INTERPRETIVE STATEMENTS: Wide QRS rhythm Left axis deviation Nonspecific intraventricular block Possible Lateral infarct, age undetermined Abnormal ECG Compared to ECG 01/14/2017 17:42:00 Uncertain supraventricular rhythm now present Left-axis deviation now present Myocardial infarct finding now present Sinus rhythm no longer present Left anterior fascicular block no longer present Electronically Signed On 08-07-21 18:24:28 PROJECT PORTFOLIO ANALYST by Zane Joiner
--- OUTSIDE RECORDS SUMMARY | 2021-08-12 13:27 | XMS REPORT | Continuity of Care Document ---
:1950 Author Organization [facility] t Address [address] [place] [address] [address] [place] [address] Care Team Providers Name Role Phone CO19 Attending Clinician Unavailable ANENE Attending Clinician Unavailable Provider, Urgent Care Attending Clinician Unavailable Anene ROLL UP MACHINE OPERATOR Attending Clinician [place] Attending Clinician Unavailable [facility] Attending Clinician Unavailable Payers Payer Name Policy Type Policy Number Effective Date Expiration Date S ourdarshana SRC AN [employer]ET[employer] [id number] 2016 2020 COMPANY 00:00:00 00:00:00 [employer]ET[employer] MEDICARE [id number] 2019 ADV 00:00:00 Problems Condition Condition Condition Status Onset Resolution Last Treating Co mments Source Name Details Category Date Date Treatment Clinician Date No known No known Disease Unive rs active active ity of problems problems [place] [facility] History of History of Problem Resolve [facility] depression depression d it y of [place] [facility] History of History of Problem Resolve Univers gallbladde gallbladde d it y of r disease r disease [place] [facility] History of History of Problem Resolve Univers hypertensi hypertensi d it y of on on [place] [facility] Chronic Chronic Problem Active Univers osteomyeli osteomyeli it y of tis of tis of [place] pelvic pelvic Physici region, region, ans unspecifie unspecifie d d laterality laterality Chronic Chronic Problem Active Univers UTI UTI ity of (urinary (urinary [place] tract tract Physici infection) infection) an s Sciatica Sciatica Problem Active Unive rs of right of right ity of side side [place] without without Physici back pain back pain ans Encounter Encounter Problem Active Uni vers for for ity of administra administra [place] tion of tion of Physici COVID-19 COVID-19 ans vaccine vaccine Allergies, Adverse Reactions, Alerts Allergy Allergy Status Severity Reaction(s) Onset Inactive Treating Comm ents Source Name Type Date Date Clinician No Known DA Active U [facility] Drug 3-04 Allergie 00:00: s 00 NO KNOWN Drug Active Univers ALLERGIE Class ity of S [facility] Social History Social Habit Start Date Stop Date Quantity Comments Source Sex Assigned At [facility] Branch Exposure to Not sure [facility] SARS-CoV-2 (event) Medica l Branch Tobacco use and 2020-08-05 2020-08-05 Never used [facility] exposure 00:00:00 00:00:00 [facility] Smoking Status Start Date Stop Date Source Never smoker [facility] Medications Ordered Filled Start Stop Current Ordering Indication Dosage Frequency Signature Comments Components Source Medication Medication Date Date Medication? Clinician (SIG) Name Name rosuvastati 2019-09 Yes Univer s n 40 mg 1-04 ity of tablet 00:00: [place] 00 [facility] bromphenira 2019-09 Yes Univdino s mine-pseudo 1-04 ity of ephedrine-D 00:00: [place] M 2-30-10 00 Medical mg/5 mL Branch syrup celecoxib 2019-09 Yes Univers 200 mg 0-28 ity of capsule 00:00: [place] 00 [facility] lisinopriL- 2019-09 Yes Univer s hydrochloro 0-28 ity of thiazide 00:00: [place] 20-25 mg 00 Medical per tablet Branch venlafaxine 2020-1 Yes Univer s XR 150 mg 0-28 ity of 24 hr 00:00: [place] capsule 00 Medical Branch omeprazole 2019-09 Yes Univers 40 mg 0-27 ity of capsule 00:00: [place] 00 [facility] cefpodoxime 2019-09 Yes TOME ASHLEE Un christopher 200 mg 0-20 TABLETA ity of tablet 00:00: DOS VECES [place] 00 AL D A Medical Branch phenazopyri 2019-09 Yes TOME ASHLEE Un christopher dine 200 mg 0-20 TABLETA ity o f tablet 00:00: JOSE VECES [place] 00 AL D A Medical Branch MYRBETRIQ Yes TOME ASHLEE Univ ers 50 mg 9-22 TABLETA ity of tablet 00:00: [facility] 00 JAY [facility] cetirizine Yes TOME ASHLEE Uni vers 10 mg 8-26 TABLETA ity of tablet 00:00: POR V A [place] ORAL [facility] Medical LOS D Branch SM SM Yes Univers Esomeprazol Esomeprazol i ty of e Magnesium e Magnesium [place] 20 MG Oral 20 MG Oral Phy sici Capsule Capsule ans Delayed Delayed Release Release Lisinopril Lisinopril Yes Uni vers TABS TABS ity of [place] Physici ans Crestor Crestor Yes Univers TABS TABS ity of [place] Physici ans Venlafaxine Venlafaxine Yes U nivers HCl - 50 MG HCl - 50 MG i ty of Oral Tablet Oral Tablet [place] Physici ans Amoxicillin Amoxicillin Yes U nivers TABS TABS ity of [place] Physici ans Immunizations Ordered Immunization Filled Immunization Date Status Commen ts Source Name Name [employer] 2020-11-04 Completed Universit y of COVID-19 Vacc 30 08:16:00 [place] [facility] MCG/0.3ML Intramuscular Suspension Vital Signs Vital Name Observation Time Observation Value Comments Source Systolic blood 2020-08-05 22:45:00 127 mm[Hg] Univer sity of pressure [facility] Diastolic blood 2020-08-05 22:45:00 85 mm[Hg] Unive rsity of pressure [facility] Heart rate 2020-08-05 22:45:00 75 /min Universi ty of [facility] Body temperature 2020-08-05 22:45:00 36.78 Ann Univ ersity of [place] [facility] Respiratory rate 2020-08-05 22:45:00 20 /min Univ ersity of [facility] Body height 2020-08-05 22:45:00 157.5 cm Universi ty of [place] [facility] Irene Body weight 2020-08-05 22:45:00 99.791 kg Universi ty of [place] [facility] BMI 2020-08-05 22:45:00 40.24 kg/m2 Universi ty of [facility] Oxygen saturation in 2020-08-05 22:45:00 97 /min University of Arterial blood by [facility] Pulse oximetry Branch Systolic blood 2020-08-05 22:45:00 127 mm[Hg] Univer sity of pressure [facility] Diastolic blood 2020-08-05 22:45:00 85 mm[Hg] Unive rsity of pressure [facility] Heart rate 2020-08-05 22:45:00 75 /min Universi ty of [facility] Body temperature 2020-08-05 22:45:00 36.78 Ann Univ [address]ity of [facility] Respiratory rate 2020-08-05 22:45:00 20 /min Univ ersity of [facility] Body height 2020-08-05 22:45:00 157.5 cm Universi ty of [place] [facility] Irene Body weight 2020-08-05 22:45:[address] [facility] BMI 2020-08-05 22:45:00 40.24 kg/m2 Universi ty of [facility] Oxygen saturation in 2020-08-05 22:45:00 97 /min University of Arterial blood by [facility] Pulse oximetry Branch 02 Sat by Pulse 2020-12-03 00:10:07 100 /min Oximetry BMI more than 35 2020-12-03 00:10:07 Y Body Mass Index 2020-12-03 00:10:07 40.2 Height 2020-12-03 00:10:07 157.48\S\62 Pulse Rate 2020-12-03 00:10:07 65 /min Pulse Strength 2020-12-03 00:10:07 Weak /min Pulse Assessment 2020-12-03 00:10:07 Palpation /min Method Pulse Rhythm 2020-12-03 00:10:07 Regular /min Respiratory Rate 2020-12-03 00:10:07 15 /min Weight 2020-12-03 00:10:07 87111.321\S\3520 02 Sat by Pulse 2020-12-02 10:48:27 100 /min Oximetry BMI more than 35 2020-12-02 10:48:27 Y Body Mass Index 2020-12-02 10:48:27 40.2 Height 2020-12-02 10:48:27 157.48\S\62 Pulse Rate 2020-12-02 10:48:27 65 /min Pulse Strength 2020-12-02 10:48:27 Weak /min Pulse Assessment 2020-12-02 10:48:27 Palpation /min Method Pulse Rhythm 2020-12-02 10:48:27 Regular /min Respiratory Rate 2020-12-02 10:48:27 15 /min Weight 2020-12-02 10:48:27 35140.321\S\3520 Body Mass Index 2020-12-02 06:31:45 40.2 Height 2020-12-02 06:31:45 157.48\S\62 Weight 2020-12-02 06:31:45 99040.321\S\3520 Body Mass Index 2020-12-02 06:19:32 40.2 Height 2020-12-02 06:19:32 157.48\S\62 Weight 2020-12-02 06:19:32 75424.321\S\3520 Body Mass Index 2020-12-01 13:20:48 40.2 Height 2020-12-01 13:20:48 157.48\S\62 Weight 2020-12-01 13:20:48 86052.321\S\3520 Body Mass Index 2020-12-01 11:20:27 40.2 Height 2020-12-01 11:20:27 157.48\S\62 Weight 2020-12-01 11:20:27 27928.321\S\3520 Body Mass Index 2020-12-01 10:45:06 40.2 Height 2020-12-01 10:45:06 157.48\S\62 Weight 2020-12-01 10:45:06 65892.321\S\3520 Body Mass Index 2020-12-01 10:01:07 40.2 Height 2020-12-01 10:01:07 157.48\S\62 Weight 2020-12-01 10:01:07 53432.321\S\3520 WEIGHT 2020-12-01 10:00:00 99.442214 kg HEIGHT 2020-12-01 10:00:00 157.48 cm Procedures Procedure Date / Time Performing Clinician Source Performed CT Pelvis wo contrast 2019-08-05 00:00:00 [facility] [id number] Physicians History of Knee [facility] xa arthroscopy Physicians Encounters Start End Encounter Admission Attending Care Care Encounter Source Date/Time Date/Time Type Type Clinicians Facility Department ID 2020-11-04 2020-11-04 Appointmen CO19, [facility] UTP [id number] Univers 13:30:00 13:30:00 t; CO19, NURSE-COOLE i ty of NURSE-COOL [facility] Physici ans 2020-08-05 2020-08-05 Outpatient R MANISH, [facility] [id number] Univers [facility]:20[facility]00 [facility] 2020-08-05 2020-08-05 Urgent Provider, [facility] [id number] Univers 16:41:50 17:01:50 Care [id number] [id number] Kehinde as Professio [phone] Ia dical [address] 2020-08-05 2020-08-05 Urgent Provider, [facility] [id number] 16:41:50 17:01:50 Care [facility] [id number] Care [place] [id number] Professio [phone] nal [facility] Office [address] 2019-08-18 2019-08-18 Luis E RAO [facility] Orthopedics [id number] Univers 11:00:00 11:00:00 t; [facility]OD [facility] Adrianna Physici ans 2019-08-05 2019-08-05 Luis E RAO [facility] Orthopedics [id number] Univers 10:30:00 10:30:00 t; ROD [facility]. [facility] M.Michael Physici ans 2019-04-30 2019-04-30 [facility] XXXOrthoped [id number] Univers 10:30:00 10:30:00 t; ROD RAO M.D. [facility] ity [facility] M.Michael Physici ans 2019-01-28 2019-01-28 [facility] UTP [id number] Univers 10:15:00 10:15:00 t; ROD RAO M.D. [place] [facility] [place] MZoeDZoe [place] ans 2019-01-21 2019-01-21 [facility] UTP [id number] Univers 11:00:00 11:00:00 t; ROD RAO M.D. [facility] [place] MOleg [place] 2019-01-07 2019-01-07 [facility] UTP [id number] Univers 09:45:00 09:45:00 t; ROD RAO M.D. [facility]anna Physici ans 2018-11-06 2018-11-06 [facility] UTP [id number] Univers 11:15:00 11:15:00 t; [facility]OD [facility] [place] 2018-10-01 2018-10-01 [facility] UTP [id number] Univers 15:30:00 15:30:00 t; [facility], DEVICE ity of DEVICE [place] Physici ans 2018-09-04 2018-09-04 [facility] UTP [id number] Univers 10:45:00 10:45:00 t; ROD RAO M.D. [place], [place] Adrianna Physici ans 2018-08-26 2018-08-26 [facility] UTP [id number] Univers 10:00:00 10:00:00 t; [facility]OD [facility] Results Test Description Test Time Test Results Result Source Comments Comments [U] XRAY PELVIS Images acquired, not University of 1 [place] 2 S [id number] [place] 10:39[place] accession number. Physici ans XR Chest 1 View 2018-08-02 Patient: KATHRINE, Frontal 0 KRYSTAL LOMBARDO 11:51:56 Date/Time08/29/2018 11:35 CSTReason for Exampre op;Other (please specify)ReportHISTORY: Female, 68 years of age with preoperative assessmentLocation code: X97TGAL: CHEST X-RAY, ONE VIEWCOMPARISON: NoneCOMMENT: Frontal view of the chest is provided. No focal infiltrate, consolidation, mass lesion, or effusion is seen. Cardiac silhouette is within normal limits. No acute bony abnormalities.IMPRESSI ON: No acute disease. Final Dictated by: Mere Allen LDictated DT/TM: 08/29/2018 11:51 amSigned by: Mere Allen LSigned (Electronic Signature): 08/29/2018 11:51 am
== END 2021-08-05 16:46 | disposition home or self-care (01) ==
LOC: ER 17:58 → 2ND 21:51
PROVIDERS: ADMIT Internal Medicine; ATTEND Internal Medicine
DX: R55 Syncope and collapse (principal); I95.9 Hypotension, unspecified; I25.10 Atherosclerotic heart disease of native coronary artery without angina pectoris; I11.0 Hypertensive heart disease with heart failure; I50.22 Chronic systolic (congestive) heart failure; T46.5X5A Adverse effect of other antihypertensive drugs, initial encounter; Y92.009 Unspecified place in unspecified non-institutional (private) residence as the place of occurrence of the external cause; Z95.5 Presence of coronary angioplasty implant and graft; Z95.810 Presence of automatic (implantable) cardiac defibrillator; Z20.822 Contact with and (suspected) exposure to COVID-19
CPT/HCPCS: 93005 ×3; 87040 ×2; 85025 ×2; 80048; 36415; 83735 ×2; 82550; 84100; 85610; 80061; 82947 ×3; 80076; 83605 ×2; 85730; 84443; 84484 ×2; 82553; 84439; 83690; 80053; 84145; 83880; 71045; 94760 ×2; 96360; 99285; U0003; J1650; J7030; G0378 ×2; 81003; 81015

== ENCOUNTER 2022-01-22 11:10 | Day surgery (SDC) | payer OTHER ==
--- NOTE | 2022-01-16 14:02 | RAD REPORT ---
EXAM DESCRIPTION: RAD - Chest Pa And Lat (2 Views) - 01/16/2022 1:49 pm CLINICAL HISTORY: pre op for heart catherization COMPARISON: Portable 08/04/2021, two view chest 01/14/2017 TECHNIQUE: Frontal and lateral views of the chest were obtained. FINDINGS: The lungs are clear of acute finding. Interstitial pattern matches comparison. Defibrillat or is in place. No failure or volume overload. Heart size is normal and central vasculature is within normal limits. No pleural effusion or pneu mothorax seen. No acute bony finding noted. No aortic abnormality. IMPRESSION: No acute cardiopulmonary process. No significant change from comparison study.
[2022-01-16 14:25] LABS: Absolute Lymphocytes (CBC) 3.2 K/uL (0.7-4.9); Hematocrit 38.3 % (36.0-45.0); Lymphocytes % 47.8 % (15.3-44.8); MPV 7.5 fL (7.6-11.3); RBC Red Blood Cell Count 4.12 M/uL (3.86-4.86)
[2022-01-16 14:29] LABS: Protime INR 1.06
[2022-01-16 14:36] LABS: BUN Blood Urea Nitrogen 16 mg/dL (7-18); Bicarbonate 27 mmol/L (21-32); Glucose Level 89 mg/dL (74-106); Potassium 3.8 mmol/L (3.5-5.1); Sodium Level 142 mmol/L (136-145)
[~2022-01-22 11:10] MED LIST: HEPA 1000U/500MLS 0 UNIT/0 ML BAG IV ONE; LIDOCAINE 1% 20 ML MDV ONE; NA CHLORIDE 0.9% 0 ML ONE
[2022-01-22] MEDS ORDERED: NA CHLORIDE 0.9% 500 ML ONE (11:19)
[2022-01-22] MEDS ORDERED: HEPA 1000U/500MLS 2,000 UNIT/1,000 ML BAG IV ONE (11:29)
[2022-01-22 11:34] VITALS: TEMP 97.5
[2022-01-22] MEDS ORDERED: MIDAZOLAM HCL 2 MG/2 ML INJ ONE (11:59)
[2022-01-22] MEDS ORDERED: FENTANYL CITR 100 MCG/2 ML ONE (11:59)
[2022-01-22] MEDS ORDERED: NITROGLYCERIN/D5W 0 MG/0 ML BTL IV ONE (12:00)
[2022-01-22] MEDS ORDERED: ATROPINE SULF 1 MG/10 ML SYR IV ONE (12:00)
[2022-01-22] MEDS ORDERED: VERAPAMIL HCL 10 MG/4 ML VIAL IV ONE (12:00)
[2022-01-22] MEDS ORDERED: NITROGLYCERIN 100 MCG/ML SYR (for cath lab use only) IV ONE (12:00)
[2022-01-22] MEDS ORDERED: NITROGLYCERIN/D5W 25 MG/250 ML BTL IV ONE (12:00)
[2022-01-22] MEDS ORDERED: HEPARIN 5000 UNIT/ML 1 ML VIAL ONE (12:00)
[2022-01-22 13:47] VITALS: BP 116/63; O2SAT 96
--- NOTE | 2022-01-22 14:05 | OP ---
Date of Procedure: 01/22/2022 Surgeon: FREDO VILLATORO Procedures Performed: 1.Selective coronary angiogram. 2.Left heart catheterization. 3.LV-gram. Indication: Abnormal stress test with low ejection fraction. Access: Right radial artery 6-[place]ai[place]ese closed with TR band. Complications: None. Bleeding: Less than 10 mL. Sedation Used: None. Description Of Procedure: After risks, benefits, and alternatives were explained the patient agreed to the procedure and signed informed consent. The patient was brought into cardiac catheterization l aboratory, prepped and draped in the usual sterile fashion. Then, I accessed right radial artery usi ng pediatric micropuncture kit and ultrasound guidance of a 6-Taiwanese sheath and took a 5-[place]ai[place] Sheldon 4.0 catheter into the aortic root, engaged left main and right coronary artery, took standard views, then exchanged for an angled pigtail catheter across the aortic valve over the wire and recorded LVE DP. LV-gram was done and pullback did not record any gradient. I removed the catheter and sheath, p laced TR band with good hemostasis. Findings: 1.Left main; large, normal. 2.LAD; large vessel with patent stent in the midportion and then normal diagonal branches. No signi ficant disease in the LAD. 3.Left circumflex; large, codominant with mid focal 30% stenosis. 4.RCA; large, codominant. No significant disease. 5.Normal LVEDP of 10 mmHg. 6.Normal ejection fraction of 55% to 60% and normal wall motion. Conclusion: 1.Mild nonobstructive coronary artery disease with patent mid LAD stent. 2.Normal LVEDP and normal LVEF. Plan: Medical management. SR/MODL Voice ID: [id number] Report ID: [id number]
== END 2022-01-22 14:16 | disposition home or self-care (01) ==
LOC: CCL 11:10
PROVIDERS: ATTEND Internal Medicine
DX: I25.10 Atherosclerotic heart disease of native coronary artery without angina pectoris (principal); I11.0 Hypertensive heart disease with heart failure; I50.9 Heart failure, unspecified; E78.5 Hyperlipidemia, unspecified; E11.9 Type 2 diabetes mellitus without complications; Z95.5 Presence of coronary angioplasty implant and graft; Z79.82 Long term (current) use of aspirin; Z79.02 Long term (current) use of antithrombotics/antiplatelets; Z79.84 Long term (current) use of oral hypoglycemic drugs; Z79.899 Other long term (current) drug therapy; Z20.822 Contact with and (suspected) exposure to COVID-19
CPT/HCPCS: 85025; 80048; 36415; 85610; 82947; 85730; 71046; 93458; 76937; U0003; C1893; Q9967; J1644 ×2; J7040; J2250; J3010

== ENCOUNTER 2022-05-31 12:00 | Emergency (ER) | payer OTHER ==
--- OUTSIDE RECORDS SUMMARY | 2022-05-31 12:04 | XMS REPORT | Continuity of Care Document ---
:[address] [facility] t Address [address] [place] [address] Dr. [address]. [address] [place] [address] Care Team Providers Name Role Phone Alex Attending Clinician Unavailable [facility]_Walk-In Attending Clinician Unavailable Radha Camacho Attending Clinician Unavailable CO19, NURSEABHIJEET Attending Clinician Unavailable MERE LOCKHART Attending Clinician Unavailable Provider, [facility] Attending Clinician Unavailable Mere Guallpa Attending Clinician ROD RAO M.D. Attending Clinician Unavailable SOUTH, DEVICE Attending Clinician Unavailable Alex Admitting Clinician Unavailable [facility]_Walk-In Admitting Clinician Unavailable Payers Payer Name Policy Type Policy Number Effective Date Expiration Date S sherlyn AETNA (MEDICARE [id number] 2021 REPLACEMENT PPO) 00:00:00 IOANA FOOTE AETNA [id number] 2016 2020 COMPANY 00:00:00 00:00:00 AETNA MEDICARE ADV [id number] 2019 00:00:00 Problems Condition Condition Condition Status Onset Resolution Last Treating Co mments Source Name Details Category Date Date Treatment Clinician Date History of History of Problem Resolve [facility] gallbladde gallbladde d Ph ysici r disease r disease ans History of History of Problem Resolve UT hypertensi hypertensi d Ph ysici on on ans Chronic Chronic Problem Active UT osteomyeli osteomyeli Ph ysici tis of tis of ans pelvic pelvic region, region, unspecifie unspecifie d d laterality laterality Chronic Chronic Problem Active UT UTI UTI Physici (urinary (urinary ans tract tract infection) infection) Sciatica Sciatica Problem Active UT of right of right Physic i side side ans without without back pain back pain Encounter Encounter Problem Active UT for for Physici administra administra an s tion of tion of COVID-19 COVID-19 vaccine vaccine No known No known Disease Unive rs active active ity of problems problems [facility] History of History of Problem Resolve UT depression depression d Ph ysici ans Allergies, Adverse Reactions, Alerts Allergy Allergy Status Severity Reaction(s) Onset Inactive Treating Comm ents Source Name Type Date Date Clinician No Known DA Active U [facility] Drug 3-04 Allergie 00:00: s 00 NO KNOWN Drug Active [facility] ALLERGIE Class ity of S [facility] Social History Social Habit Start Date Stop Date Quantity Comments Source Sex Assigned At [facility] Medical Branch Exposure to Not sure [facility] SARS-CoV-2 (event) Medica l Branch Tobacco use and 2020-08-05 2020-08-05 Never used [facility] exposure 00:00:00 00:00:00 Medical [place] Smoking Status Start Date Stop Date Source Never Smoker [facility] Medications Ordered Filled Start Stop Current Ordering Indication Dosage Frequency Signature Comments Components Source Medication Medication Date Date Medication? Clinician (SIG) Name Name carvedilol carvedilol No carvedilol [place] 25 mg 25 mg 2-09 25 mg da tablet 1 tablet 1 00:00: tablet 1 M edical tab po qd tab po qd 00 tab po qd Group rosuvastati 2019-09 Yes Univer s n 40 mg 1-04 ity of tablet 00:00: [place] 00 Medical Branch bromphenira 2019-09 Yes Univer s mine-pseudo 1-04 ity of ephedrine-D 00:00: [place] M 00 Medical mg/5 mL Branch syrup celecoxib 2019-09 Yes Univers 200 mg 0-28 ity of capsule 00:00: [place] 00 Medical Branch lisinopriL- 2019-09 Yes Univer s hydrochloro 0-28 ity of thiazide 00:00: [place] 20-25 mg 00 Medical per tablet Branch venlafaxine 2019-09 Yes Univer s XR 150 mg 0-28 ity of 24 hr 00:00: [place] capsule 00 Medical Branch omeprazole 2019-09 Yes Univers 40 mg 0-27 ity of capsule 00:00: [place] 00 Medical Branch cefpodoxime 2019-09 Yes TOME ASHLEE Un christopher 200 mg 0-20 TABLETA ity [facility] phenazopyri 2019-09 Yes TOME ASHLEE Un christopher dine 200 mg 0-20 TABLETA ity o f tablet 00:[facility] Branch MYRBETRIQ Yes TOME ASHLEE Univ ers 50 mg 9-22 TABLETA ity of tablet 00:00: [facility] 00 JAY Medical Branch cetirizine Yes TOME ASHLEE Uni vers 10 mg 8-26 TABLETA ity of tablet 00:00: POR V A [place] 00 [facility] LOS D Branch alendronate alendronate No alendronat [place] 70 mg 70 mg e 70 mg da tablet TAKE tablet TAKE tablet Medical 1 TABLET BY 1 TABLET BY TAKE 1 Group MOUTH ONCE MOUTH ONCE TABLET BY A WEEK A WEEK MOUTH ONCE A WEEK clopidogrel clopidogrel No clopidogre [place] 75 mg 75 mg l 75 mg da tablet TAKE tablet TAKE tablet Medical 1 TABLET BY 1 TABLET BY TAKE 1 Group MOUTH ONCE MOUTH ONCE TABLET BY DAILY DAILY MOUTH ONCE DAILY Entresto 24 Entresto 24 No Entresto [place] mg-26 mg mg-26 mg 24 mg-26 da tablet TAKE tablet TAKE mg tablet Medical 1 TABLET BY 1 TABLET BY TAKE 1 Group MOUTH TWICE MOUTH TWICE TABLET BY DAILY DAILY MOUTH TWICE DAILY famotidine famotidine No famotidine [place] 20 mg 20 mg 20 mg da tablet tablet tablet Medical Group furosemide furosemide No furosemide [place] 40 mg 40 mg 40 mg da tablet TAKE tablet TAKE tablet Medical 1 TABLET BY 1 TABLET BY TAKE 1 Group MOUTH ONCE MOUTH ONCE TABLET BY DAILY DAILY MOUTH ONCE DAILY metformin metformin No metformin [place] ER 500 mg ER 500 mg ER 500 mg da tablet,exte tablet,exte tablet,ext Medical nded nded ended Group release 24 release 24 release 24 hr TAKE 1 hr TAKE 1 hr TAKE 1 TABLET BY TABLET BY TABLET BY MOUTH ONCE MOUTH ONCE MOUTH ONCE DAILY FOR DAILY FOR DAILY FOR 90 DAYS 90 DAYS 90 DAYS potassium potassium No potassium [place] chloride ER chloride ER chloride da 10 mEq 10 mEq ER 10 mEq Medica l tablet,exte tablet,exte tablet,ext Group nded nded ended release release release TAKE 2 TAKE 2 TAKE 2 TABLETS BY TABLETS BY TABLETS BY MOUTH ONCE MOUTH ONCE MOUTH ONCE DAILY DAILY DAILY rosuvastati rosuvastati No rosuvastat [place] n 40 mg n 40 mg in 40 mg da tablet TOME tablet TOME tablet Medical ASHLEE TABLETA ASHLEE TABLETA TOME ASHLEE Group TODOS LOS TODOS LOS TABLETA JAY AL JAY AL TODOS LOS ACOSTARSE ACOSTARSE JAY AL ACOSTARSE terbinafine terbinafine No terbinafin [place] HCl 250 mg HCl 250 mg e HCl 250 da tablet TAKE tablet TAKE mg tablet Medical 1 TABLET BY 1 TABLET BY TAKE 1 Group MOUTH ONCE MOUTH ONCE TABLET BY DAILY DAILY MOUTH ONCE DAILY venlafaxine venlafaxine No 1 Q1D venlafaxin [place] ER 225 mg ER 225 mg e ER 225 d a tablet,exte tablet,exte mg M edical nded nded tablet,ext Group release 24 release 24 ended hr Take 1 hr Take 1 release 24 tablet tablet hr Take 1 every day every day tablet by oral by oral every day route for route for by oral 90 days. 90 days. route for 90 days. SM SM Yes UT Esomeprazol Esomeprazol P hysici e Magnesium e Magnesium a ns 20 MG Oral 20 MG Oral Capsule Capsule Delayed Delayed Release Release Lisinopril Lisinopril Yes UT TABS TABS Physici ans Crestor Crestor Yes UT TABS TABS Physici ans Venlafaxine Venlafaxine Yes U T HCl - 50 MG HCl - 50 MG P hysici Oral Tablet Oral Tablet a ns Amoxicillin Amoxicillin Yes U T TABS TABS Physici ans Immunizations Ordered Immunization Filled Immunization Date Status Commen ts Source Name Name pneumococcal pneumococcal 2021-12-23 Completed [facility] conjugate PCV 20 conjugate PCV 20 00:00:00 Ny dical Group Pfizer-BioNTech 2020-11-04 Completed [facility] Physic ians COVID-19 Vacc 30 08:16:00 MCG/0.3ML Intramuscular Suspension Vital Signs Vital Name Observation Time Observation Value Comments Source BP Diastolic 2022-03-21 00:00:00 80 mm[Hg] [facility] Height 2022-03-21 00:00:00 62 [in_i] [facility] BMI (Body Mass 2022-03-21 00:00:00 39.4 kg/m2 [facility] Medical Index) Group BP Systolic 2022-03-21 00:00:00 121 mm[Hg] [facility] Body Weight 2022-03-21 00:00:00 3449 [oz_av] [facility] BP Diastolic 2022-03-06 00:00:00 73 mm[Hg] [facility] Height 2022-03-06 00:00:00 62 [in_i] [facility] BMI (Body Mass 2022-03-06 00:00:00 38.8 kg/m2 [facility] Medical Index) Group BP Systolic 2022-03-06 00:00:00 115 mm[Hg] [facility] Body Weight 2022-03-06 00:00:00 3396 [oz_av] [facility] Height 2021-12-21 00:00:00 62 [in_i] [facility] BMI (Body Mass 2021-12-21 00:00:00 40.6 kg/m2 [facility] Medical Index) Group BP Systolic 2021-12-21 00:00:00 98 mm[Hg] [facility] Body Weight 2021-12-21 00:00:00 3553 [oz_av] [facility] BP Diastolic 2021-12-21 00:00:00 67 mm[Hg] [facility] BP Diastolic 2021-11-22 00:00:00 81 mm[Hg] [facility] Height 2021-11-22 00:00:00 62 [in_i] [facility] BMI (Body Mass 2021-11-22 00:00:00 40.7 kg/m2 [facility] Medical Index) Group BP Systolic 2021-11-22 00:00:00 135 mm[Hg] [facility] Body Weight 2021-11-22 00:00:00 3561 [oz_av] [facility] BP Diastolic 2021-11-08 00:00:00 46 mm[Hg] [facility] Height 2021-11-08 00:00:00 62 [in_i] [facility] BMI (Body Mass 2021-11-08 00:00:00 41.4 kg/m2 [facility] Medical Index) Group BP Systolic 2021-11-08 00:00:00 87 mm[Hg] [facility] Body Weight 2021-11-08 00:00:00 3618 [oz_av] [facility] Systolic blood 2020-08-05 22:45:00 127 mm[Hg] Univer sity of pressure [facility] Diastolic blood 2020-08-05 22:45:00 85 mm[Hg] Unive rsity of [facility] Heart rate 2020-08-05 22:45:00 75 /min [facility] Body temperature 2020-08-05 22:45:00 36.78 [facility] Res[facility] rate 2020-08-05 22:45:00 20 /min [facility] Body height 2020-08-05 22:45:00 157.5 cm [facility] Body weight 2020-08-05 22:45:00 99.791 kg [facility] BMI 2020-08-05 22:45:00 40.24 kg/m2 [facility] Oxygen saturation in 2020-08-05 22:45:00 97 /min [facility] Arterial blood by [facility] Pulse oximetry Branch Systolic blood 2020-08-05 22:45:00 127 mm[Hg] Univer sity of pressure [facility] Diastolic blood 2020-08-05 22:45:00 85 mm[Hg] Unive rsity of pressure [facility] Heart rate 2020-08-05 22:45:00 75 /min Universi ty of [facility] Body temperature 2020-08-05 22:45:00 36.78 Ann Univ ersity of [facility] Respiratory rate 2020-08-05 22:45:00 20 /min [facility] Body height 2020-08-05 22:45:00 157.5 cm Universi ty of [facility] Body weight 2020-08-05 22:45:00 99.791 kg Universi ty of [facility] BMI 2020-08-05 22:45:00 40.24 kg/m2 Universi ty [facility] Oxygen saturation in 2020-08-05 22:45:00 97 /min University Arterial blood by [facility] Pulse oximetry Branch 02 Sat by Pulse 2020-12-03 00:10:07 100 /min Oximetry BMI more than 35 2020-12-03 00:10:07 Y Body Mass Index 2020-12-03 00:10:07 40.2 Height 2020-12-03 00:10:07 157.48\S\62 Pulse Rate 2020-12-03 00:10:07 65 /min Pulse Strength 2020-12-03 00:10:07 Weak /min Pulse Assessment 2020-12-03 00:10:07 Palpation /min Method Pulse Rhythm 2020-12-03 00:10:07 Regular /min Respiratory Rate 2020-12-03 00:10:07 15 /min Weight 2020-12-03 00:10:07 81536.321\S\3520 02 Sat by Pulse 2020-12-02 10:48:27 100 /min Oximetry BMI more than 35 2020-12-02 10:48:27 Y Body Mass Index 2020-12-02 10:48:27 40.2 Height 2020-12-02 10:48:27 157.48\S\62 Pulse Rate 2020-12-02 10:48:27 65 /min Pulse Strength 2020-12-02 10:48:27 Weak /min Pulse Assessment 2020-12-02 10:48:27 Palpation /min Method Pulse Rhythm 2020-12-02 10:48:27 Regular /min Respiratory Rate 2020-12-02 10:48:27 15 /min Weight 2020-12-02 10:48:27 46094.321\S\3520 Body Mass Index 2020-12-02 06:31:45 40.2 Height 2020-12-02 06:31:45 157.48\S\62 Weight 2020-12-02 06:31:45 14343.321\S\3520 Body Mass Index 2020-12-02 06:19:32 40.2 Height 2020-12-02 06:19:32 157.48\S\62 Weight 2020-12-02 06:19:32 40681.321\S\3520 Body Mass Index 2020-12-01 13:20:48 40.2 Height 2020-12-01 13:20:48 157.48\S\62 Weight 2020-12-01 13:20:48 39681.321\S\3520 Body Mass Index 2020-12-01 11:20:27 40.2 Height 2020-12-01 11:20:27 157.48\S\62 Weight 2020-12-01 11:20:27 93709.321\S\3520 Body Mass Index 2020-12-01 10:45:06 40.2 Height 2020-12-01 10:45:06 157.48\S\62 Weight 2020-12-01 10:45:06 04443.321\S\3520 Body Mass Index 2020-12-01 10:01:07 40.2 Height 2020-12-01 10:01:07 157.48\S\62 Weight 2020-12-01 10:01:07 13903.321\S\3520 WEIGHT 2020-12-01 10:00:00 99.645614 kg HEIGHT 2020-12-01 10:00:00 157.48 cm Procedures Procedure Date / Time Performing Clinician Source Performed CT Pelvis wo contrast 2019-08-05 00:00:00 [facility] History of Knee [facility] arthroscopy [facility] Hyste[facility] Colonoscopy [facility] Plan of Care Planned Activity Planned Date Details Comments Source Diagnostic Test 2022-03-21 CMP, serum or plasma [facility] Pending 00:00:00 [code = CMP, serum Group or plasma] Diagnostic Test 2022-03-21 hemoglobin A1c, QN, [facility] Pending 00:00:00 blood [code = Group hemoglobin A1c, QN, blood] Diagnostic Test 2022-03-21 urinalysis complete, [facility] Pending 00:00:00 reflex culture [code Group = urinalysis complete, reflex culture] Future Appointment 2022-07-21 Chiki Rosales, [address] [facility] 00:00:00 [facility] [address]; [place] [address] Encounters Start End Encounter Admission Attending Care Care Encounter Source Date/Time Date/Time Type Type Clinicians Facility Department ID 2022-03-21 2022-03-21 Outpatient Zuniga_F [facility] [id number] [place] 09:47:00 09:47:00 622 [facility] 2022-03-21 2022-03-21 Chiki [facility] [place] - [id number] [place] 00:00:00 00:00:00 [facility] MD: [address] [address], [place] [address] , Ph. 2022-03-06 2022-03-06 Outpatient Zuniga_F [facility] [id number] [place] 11:58:00 11:58:00 607 [facility] 2022-03-06 2022-03-06 Chiki [facility] [place] - [id number] [place] 00:00:00 00:00:00 Dio Gold Medical MD: [address] [address], [place] [address] , Ph. 2022-03-05 2022-03-05 Outpatient PRIV PRIV [id number] [facility] 10:10:00 10:10:00 [id number] Medica l 2022-01-19 2022-01-19 Outpatient Zuniga_F MMG [facility] [id number] [place] 10:39:00 10:39:00 422 [facility] 2021-12-21 2021-12-21 Outpatient Zuniga_F [facility] [id number] [place] 04:58:00 04:58:00 325 [facility] 2021-12-21 2021-12-21 Outpatient Zuniga_F [facility] [id number] [place] 04:58:00 04:58:00 328 [facility] 2021-12-21 2021-12-21 Outpatient Zuniga_F [facility] G [id number] [place] 04:58:00 04:58:00 329 [facility] 2021-12-21 2021-12-21 Outpatient Zuniga_F [facility] [id number] [place] 04:58:00 04:58:00 324 [facility] 2021-12-21 2021-12-21 Chiki [facility] [place] - [id number] [facility] 00:00:00 00:00:00 [facility] MD: [address] [facility] [address], [place] [address] , Ph. 2021-11-22 2021-11-22 [id number] [place] 01:08:00 01:08:00 223 [facility] 2021-11-22 2021-11-22 Chiki [facility] [place] - [id number] [place] 00:00:00 00:00:00 Dio Gold Medical MD: [address] [facility] [address], [place] [address] , Ph. 2021-11-09 2021-11-09 [id number] [place] 01:24:00 01:24:00 210 da [facility] 2021-11-08 2021-11-08 Outpatient Zuniga_F [facility] [id number] [place] 03:05:00 03:05:00 209 [facility] 2021-11-08 2021-11-08 Chiki MM [place] - [id number] [place] 00:00:00 00:00:00 [facility] : [address] [facility] [address], [place] [address] , Ph. 2021-10-27 2021-10-27 Outpatient Frankunoxanaa_F [facility] [id number] [place] 03:55:00 03:55:00 128 Medical Group 2021-10-14 2021-10-14 Outpatient [facility]_Wal PRIV PRIV [id number] [facility] 03:32:00 03:32:00 k-In [id number] Medica l 2021-09-16 2021-09-16 Outpatient [facility]_Wal PRIV PRIV [id number] [facility] 03:56:00 03:56:00 k-In [id number] Medica l 2020-12-02 2020-12-02 Outpatient Elective Janice, [facility] [id number] [facility] 13:30:00 13:30:00 Radha 97 2020-11-04 2020-11-04 Appointmen CO19, [facility] UTP [id number] [place] 13:30:00 13:30:00 t; CO19, NURSE-COOLE P hysinova NURSE-COOL Y ans EY 2020-08-05 2020-08-05 Outpatient Ian LOCKHART, [facility] [id number] [facility] 17:20:00 17:20:00 MERE whiting [facility] 2020-08-05 2020-08-05 Urgent Provider, [facility] [id number] 16:41:50 17:01:50 Care [facility] [id number] Care [place] [id number] Profaristidesio [id number] nal [address] 2020-08-05 2020-08-05 Urgent Provider, [facility] [id number] [facility] 16:41:50 17:01:50 Care [facility] [id number] [facility] [id number] Kehinde as Trayio [id number] Ny dical formerly [facility] 044 Branch Office [facility] One 2019-08-18 2019-08-18 [facility] [id number] [place] 11:00:00 11:00:00 t; ROD RAO M.D. - [facility] Adrianna 2019-08-05 2019-08-05 [facility] [id number] [place] 10:30:00 10:30:00 t; ROD RAO M.D. [facility] timothy Rodas 2019-04-30 2019-04-30 [facility] XXXOrthoped [id number] [place] 10:30:00 10:30:00 t; ROD RAO M.D. [facility] Lani VELASCO [place] timothy Rodas 2019-01-28 2019-01-28 [facility] [id number] [place] 10:15:00 10:15:00 t; ROD RAO M.D. [place] Lani VELASCO Orthopedics ans M.DZoe 2019-01-21 2019-01-21 [facility] [id number] [place] 11:00:00 11:00:00 t; ROD RAO M.D. [place] Lani VELASCO Orthopedics ans MOleg 2019-01-07 2019-01-07 [facility] [id number] [place] 09:45:00 09:45:00 t; ROD RAO M.D. [facility] Lani VELASCO [place] timothy Rodas 2018-11-06 2018-11-06 [facility] [id number] [place] 11:15:00 11:15:00 t; ROD RAO M.D. [place] Lani VELASCO Orthopedics timothy MOleg 2018-10-01 2018-10-01 [facility] [id number] [place] 15:30:00 15:30:00 t; JESUSITA MONTAÑO Phys ici DEVICE ans 2018-09-04 2018-09-04 [facility] [id number] [place] 10:45:00 10:45:00 t; ROD RAO M.D. Physici JERRY, ans M.D. 2018-08-26 2018-08-26 [facility] [id number] [place] 10:00:00 10:00:00 t; ROD RAO M.D. Physici JERRY, ans M.D. Results Test Description Test Time Test Comments Results Result Comments Source Urinalysis complete W Reflex Culture panel - Urine 7 11:10:00 Test Item Value Reference Range Interpretation Comme nts Color of Urine by Auto (test code = 27582-2) yellow Appearance of Urine (test code = 5767-9) clear clear Glucose [Presence] in Urine by Automated test strip negative ne gative (test code = 06803-4) Bilirubin.total [Mass/volume] in Urine (test code = negative ne gative 1978-02) Ketones [Mass/volume] in Urine by Automated test strip negative negative (test code = 80222-9) Specific gravity of Urine by Automated test strip (test 1.025 1.003-1.030 code = 88634-7) blood urine (test code = blood urine) negative negative pH of Urine (test code = 2756-5) 6.000 5-9 protein urine (UA) (test code = protein urine (UA)) =1+ (30 ne gative H Urobilinogen [Presence] in Urine (test code = 11800-7) normal 0.2-1.0 Nitrite [Presence] in Urine by Test strip (test code = negative negative 5802-4) Leukocyte esterase [Presence] in Urine by Automated negative ne gative test strip (test code = 64785-8) Erythrocytes [#/volume] in Urine by Automated count =11-14 0- 5 H (test code = 798-9) Leukocytes [#/area] in Urine sediment by Automated =1-5 0-5 count (test code = 52732-8) Epithelial cells [Presence] in Urine sediment by Light =1-5 0-5 microscopy (test code = 29961-0) Bacteria identified in Urine by Culture (test code = none detected none detect 630-4) Casts [#/area] in Urine sediment by Automated count =2-5 no ne detect (test code = 73956-7) urine culture added? (test code = urine culture added?) no [facility]Mass/volume] in [id number] 11:10:00 Test Item Value Reference Range Interpretation Comments Hemoglobin A1c [Mass/volume] in Blood 6.1 % 4.0-6.0 H (test code = 96013-2) [facility] 2000 [facility] - Serum or Plasma 2022-03-06 11:10:00 Test Item Value Reference Range Interpretation Comments Glucose [Mass/volume] in Serum or 88 mg/dL 82-115 Plasma (test code = 2345-7) Urea nitrogen [Mass/volume] in 20 mg/dL 8-23 Serum or Plasma (test code = 3094-0) osmolality calculated,serum (test 283 mOsm/kg 280-300 code = osmolality calculated,serum) creatinine (test code = 0.65 mg/dL 0.50-0.90 creatinine) glomerular filtration rate (test >60.00 code = glomerular filtration rate) Urea nitrogen/Creatinine [Mass 30.8 12.0-20.0 H Ratio] in Serum or Plasma (test code = 3097-3) sodium level (test code = sodium 141 mmol/L 135-145 level) potassium level (test code = 4.3 mmol/L 3.5-5.2 potassium level) chloride level (test code = 103 mmol/L 98-108 chloride level) CO2 (test code = CO2) 29 mmol/L 21-32 anion gap (test code = anion gap) 13.3 mEq/L 12.0-20.0 calcium level (test code = 9.8 mg/dL 8.8-10.2 calcium level) total protein (test code = total 7.7 g/dL 6.6-8.7 protein) albumin (test code = albumin) 4.6 g/dL 3.5-5.2 globulin (test code = globulin) 3.1 g/dL 1.5-4.5 A/G ratio (test code = A/G ratio) 1.5 >1.0 bilirubin,total (test code = 0.4 mg/dL 0.0-1.2 bilirubin,total) AST/SGOT (test code = AST/SGOT) 21 U/L 15-32 Alanine aminotransferase 19 U/L 0-33 [Enzymatic activity/volume] in Serum or Plasma (test code = 1742-6) Alkaline phosphatase [Enzymatic 71 U/L 35-105 activity/volume] in Serum or Plasma (test code = 6768-6) [facility] W Auto Differential panel - [id number] 10:25:00 Test Item Value Reference Range Interpretation Comments white blood count (test code = 5.7 K/uL 4.0-11.5 white blood count) red blood count (test code = red 4.24 M/uL 3.80-5.20 blood count) hemoglobin (test code = 14.0 g/dL 10.5-15.7 hemoglobin) hematocrit (test code = 41.6 % 34.0-50.0 hematocrit) MCV [Entitic volume] (test code = 98.1 fL 86.0-100.0 16637-3) mean corpuscular hemoglobin (test 33.0 pg 26.2-33.4 code = mean corpuscular hemoglobin) mean corpuscular HGB conc (test 33.7 g/dL 30.0-34.0 code = mean corpuscular HGB conc) red cell distribution width (test 13.8 % 12.0-15.5 code = red cell distribution width) platelet count (test code = 239 K/uL 165-450 platelet count) mean platelet volume (test code = 8.9 fL 9.4-12.6 L mean platelet volume) Segmented neutrophils/100 40.6 % 44.4-80.1 L leukocytes in Blood (test code = 99635-5) Immature granulocytes [#/volume] 0.01 K/uL 0.00-0.03 in Blood (test code = 13461-5) lymphocyte% (test code = 48.1 % 10.0-50.0 lymphocyte%) mono % (test code = mono %) 7.8 % 3.6-12.0 eos % (test code = eos %) 2.8 % 0.0-5.4 Basophils/100 leukocytes in 0.5 % 0.1-1.2 Specimen (test code = 59490-7) Band form neutrophils [#/volume] 2.30 K/uL 1.56-6.13 in Blood (test code = 94782-8) Lymphocytes [#/volume] in Specimen 2.72 K/uL 1.18-3.74 by Automated count (test code = 44084-1) mono # (test code = mono #) 0.44 K/uL 0.24-0.86 eos # (test code = eos #) 0.16 K/uL 0.04-0.36 basophil # (test code = basophil 0.03 K/uL 0.01-0.08 #) NRBC% (test code = NRBC%) 0 /100 WBC 0-0.2 NRBC# (test code = NRBC#) 0 K/uL [place] HospitalHemoglobin A1c [Mass/volume] in [id number] 10:25:00 Test Item Value Reference Range Interpretation Comments Hemoglobin A1c [Mass/volume] in Blood 6.2 % 4.0-6.0 H (test code = 47152-9) [facility] 2000 [facility] - Serum or Plasma 2021-11-15 10:25:00 Test Item Value Reference Range Interpretation Comments glucose (test code = glucose) 108 mg/dL 82-115 Urea nitrogen [Mass/volume] in 18 mg/dL 8-23 Serum or Plasma (test code = 3094-0) osmolality calculated,serum (test 286 mOsm/kg 280-300 code = osmolality calculated,serum) creatinine (test code = 0.51 mg/dL 0.50-0.90 creatinine) glomerular filtration rate (test >60.00 code = glomerular filtration rate) Urea nitrogen/Creatinine [Mass 35.3 12.0-20.0 H Ratio] in Serum or Plasma (test code = 3097-3) sodium level (test code = sodium 142 mmol/L 135-145 level) Potassium [Moles/volume] in Body 4.2 mmol/L 3.5-5.2 fluid (test code = 2821-7) chloride level (test code = 106 mmol/L 98-108 chloride level) CO2 (test code = CO2) 26 mmol/L 21-32 anion gap (test code = anion gap) 14.2 mEq/L 12.0-20.0 calcium level (test code = 9.2 mg/dL 8.8-10.2 calcium level) total protein (test code = total 7.1 g/dL 6.6-8.7 protein) albumin (test code = albumin) 4.0 g/dL 3.5-5.2 globulin (test code = globulin) 3.1 g/dL 1.5-4.5 A/G ratio (test code = A/G ratio) 1.3 >1.0 bilirubin,total (test code = 0.3 mg/dL 0.0-1.2 bilirubin,total) AST/SGOT (test code = AST/SGOT) 17 U/L 15-32 Alanine aminotransferase 18 U/L 0-33 [Enzymatic activity/volume] in Serum or Plasma (test code = 1742-6) Alkaline phosphatase [Enzymatic 64 U/L 35-105 activity/volume] in Serum or Plasma (test code = 6768-6) [facility], method unspecified - [id number] 00:00:00NeutrophilsBandLymphocyteAtypical LymphMonocyteEosinophilBasophilAbs Neutrophil Count (Man)Abs LymphCount (Man)Abs Monocyte Count (Man)Abs Eosinophil Count (Man)Abs Basophil Count (Man)Platelet EstimatePlatelet MorphologyAnisocytosisPascagoula HospitalThyrotropin [Units/volume] in Serum or [id number] 00:00:00 Test Item Value Reference Range Interpretation Comments Thyrotropin [Units/volume] in 1.90 uIU/mL 0.36-3.74 Serum or Plasma (test code = 3016-3) [facility] 1996 panel - Serum or [id number] 00:00:00 Test Item Value Reference Range Interpretation Comments cholesterol level (test code = 180 mg/dL 150-200 cholesterol level) triglycerides level (test code = 122 mg/dL <150 triglycerides level) HDL cholesterol (test code = HDL 69 mg/dL >65 cholesterol) LDL cholesterol direct (test code = 90 mg/dL <100 LDL cholesterol direct) cholesterol risk ratio (test code = 2.608 cholesterol risk ratio) [facility][U] XRAY PELVIS 1 OR 2 VWS [id number] 10:39:00Images acquired, not reported on this accession number.[facility] PhysiciansXR Chest 1 View [id number] 11:51:56Patient: KRYSTAL CHISHOLM Date/Time08/29/2018 11:35 CSTReason for Exampre op;Other (please specify)ReportHISTORY: Female, 68 years of age with preoperative assessmentLocation code: [id number]: CHEST X-RAY, ONE VIEWCOMPARISON: NoneCOMMENT: Frontal view of the chest is provided. No focal infiltrate, consolidation, mass lesion, or effusion is seen. Cardiac silhouette is within normallimits. No acute bony abnormalities.IMPRESSION: No acute disease. Final Dictated by: Mere Allen LDictated DT/TM: 08/29/2018 11:51 amSigned by: Mere Allen LSigned (Electronic Signature): 08/29/2018 11:51 am
[2022-05-31] MEDS ORDERED: NA CHLORIDE 0.9% 1,000 ML ONE (13:50)
--- NOTE | 2022-05-31 14:08 | RAD REPORT ---
EXAM DESCRIPTION: RAD - Facial Bones <3 Views - 05/31/2022 1:52 pm CLINICAL HISTORY: TRAUMA COMPARISON: No comparisons FINDINGS: No nasal or other facial bone fracture is evident. Air-fluid levels in both maxillary sinu ses noted probably blood product.
[2022-05-31 14:34] LABS: Hematocrit 36.2 % (36.0-45.0); Lymphocytes % 34.9 % (15.3-44.8); MCV 92.8 fL (80-100)
[2022-05-31 14:48] LABS: Potassium 4.4 mmol/L (3.5-5.1)
[2022-05-31 14:53] LABS: MPV 7.3 fL (7.6-11.3)
--- NOTE | 2022-05-31 14:55 | EDPHYS ---
Physician Documentation [facility] Name: Lisandra Gilman Age: 71 yrs Sex: Female : 1950 Arrival Date: 05/31/2022 Time: 12:00 Bed 11 Private MD: ED Physician Chuck Washington HPI: 05/31 12:37 This 71 yrs old Female presents to ER via Ambulatory with complaints of nose jl9 pain and bleeding s/p trip and fall. No LOC. . 12:37 Details of fall: The patient fell from an upright position. Onset: The symptoms/episode jl9 began/occurred just prior to arrival. Associated injuries: The patient sustained injury to the head. Historical: - Allergies: 12:16 No Known Allergies; hb - PMHx: 12:16 Depression; GALLSTONES; High Cholesterol; Hypertension; Kidney stones; hb - PSHx: 12:16 Implantation of cardiac pacemaker; Repair of inguinal hernia; hb - Immunization history:: Adult Immunizations up to date. - Social history:: Smoking status: Patient denies any tobacco usage or history of. ROS: 12:37 Constitutional: Negative for fever, chills, and weight loss, Eyes: Negative for injury, jl9 pain, redness, and discharge. 12:37 Neck: Negative for injury, pain, and swelling, Cardiovascular: Negative for chest pain, palpitations, and edema, Respiratory: Negative for shortness of breath, cough, wheezing, and pleuritic chest pain, Abdomen/GI: Negative for abdominal pain, nausea, vomiting, diarrhea, and constipation, Back: Negative for injury and pain, : Negative for injury, bleeding, discharge, and swelling, MS/Extremity: Negative for injury and deformity, Skin: Negative for injury, rash, and discoloration, Neuro: Negative for headache, weakness, numbness, tingling, and seizure, Psych: Negative for depression, anxiety, suicide ideation, homicidal ideation, and hallucinations, Allergy/Immunology: Negative for hives, rash, and allergies, Endocrine: Negative for neck swelling, polydipsia, polyuria, polyphagia, and marked weight changes, Hematologic/Lymphatic: Negative for swollen nodes, abnormal bleeding, and unusual bruising. 12:37 ENT: Positive for nose bleed. Exam: 12:38 Constitutional: This is a well developed, well nourished patient who is awake, alert, jl9 and in no acute distress. 12:38 Eyes: Pupils equal round and reactive to light, extra-ocular motions intact. Lids and lashes normal. Conjunctiva and sclera are non-icteric and not injected. Cornea within normal limits. Periorbital areas with no swelling, redness, or edema. 12:38 Neck: Trachea midline, no thyromegaly or masses palpated, and no cervical lymphadenopathy. Supple, full range of motion without nuchal rigidity, or vertebral point tenderness. No Meningismus. Chest/axilla: Normal chest wall appearance and motion. Nontender with no deformity. No lesions are appreciated. Cardiovascular: Regular rate and rhythm with a normal S1 and S2. No gallops, murmurs, or rubs. Normal PMI, no JVD. No pulse deficits. Respiratory: Lungs have equal breath sounds bilaterally, clear to auscultation and percussion. No rales, rhonchi or wheezes noted. No increased work of breathing, no retractions or nasal flaring. Abdomen/GI: Soft, non-tender, with normal bowel sounds. No distension or tympany. No guarding or rebound. No evidence of tenderness throughout. Back: No spinal tenderness. No costovertebral tenderness. Full range of motion. Skin: Warm, dry with normal turgor. Normal color with no rashes, no lesions, and no evidence of cellulitis. MS/ Extremity: Pulses equal, no cyanosis. Neurovascular intact. Full, normal range of motion. Neuro: Awake and alert, GCS 15, oriented to person, place, time, and situation. Cranial nerves II-XII grossly intact. Motor strength 5/5 in all extremities. Sensory grossly intact. Cerebellar exam normal. Normal gait. Psych: Awake, alert, with orientation to person, place and time. Behavior, mood, and affect are within normal limits. 12:38 Head/face: Exam is negative for Noted is swelling, tenderness. 12:38 ENT: Nose: clotted blood, in both nares. Vital Signs: 12:14 BP 122 / 81; Pulse 75; Resp 16; Temp 97.9; Pulse Ox 98% on R/A; Pain 3/10; hb 15:00 BP 138 / 88; Pulse 74; Resp 18; Pulse Ox 99% on R/A; hb Procedures: 13:29 Epistaxis treatment: A moderate amount of bleeding noted from left nare. Treated using jl9 rhino rocket, Bleeding stopped. MDM: 12:04 Patient medically screened. jl9 12:39 Data reviewed: vital signs, nurses notes. jl9 14:54 Counseling: I had a detailed discussion with the patient and/or guardian regarding: the jl9 historical points, exam findings, and any diagnostic results supporting the discharge/admit diagnosis, lab results, radiology results, to return to the emergency department if symptoms worsen or persist or if there are any questions or concerns that arise at home. 05/31 13:24 Order name: CBC with Diff; Complete Time: 14:57 9 05/31 13:24 Order name: BMP; Complete Time: 14:49 9 05/31 12:16 Order name: Facial Bones <3 Views XRAY; Complete Time: 14:13 9 05/31 13:24 Order name: IV Saline Lock; Complete Time: 14:14 jl9 Administered Medications: 14:18 Drug: NS 0.9% 1000 ml Route: IV; Rate: 1000 ml; Site: left antecubital; hb 15:14 Follow up: Response: No adverse reaction; IV Status: Infusion continued; IV Intake: hb 1000ml Disposition: 18:14 Co-signature as Attending Physician, Chuck Washington DO I was immediately available on-site ms3 in the emergency department for consultation in the care of the patient. Per ELIN Jones patient was offered CT head and neck and patient declined.. Disposition Summary: 05/31/22 14:54 Discharge Ordered Location: Home jl9 Condition: Stable jl9 Diagnosis - Other specified disorders of nose and nasal sinuses jl9 Followup: jl9 - With: Private Physician - When: 1 - 2 days - Reason: Recheck today's complaints, Continuance of care, Re-evaluation by your physician Discharge Instructions: - Discharge Summary Sheet jl9 - Nosebleed, Adult, [id number] jl9 Forms: - Medication Reconciliation Form jl9 - Thank You Letter jl9 - Antibiotic Education jl9 - Prescription Opioid Use jl9 Signatures: Dispatcher [employer] Amber Mejía RN Chuck Leger DO DO ms3 Dennis Jones jl9
--- NOTE | 2022-05-31 14:55 | ER ---
Nurse's Notes [facility] Name: Lisandra Gilman Age: 71 yrs Sex: Female : 1950 Arrival Date: 05/31/2022 Time: 12:00 Bed 11 Private MD: Diagnosis: Other specified disorders of nose and nasal sinuses Presentation: 05/31 12:14 Chief complaint: Nosebleed after falling face first on pavement, denies other injuries. hb Takes ASA. Negative LOC. Coronavirus screen: At this time, the client does not indicate any symptoms associated with coronavirus-19. Ebola Screen: No symptoms or risks identified at this time. Risk Assessment: Do you want to hurt yourself or someone else? Patient reports no desire to harm self or others. Onset of symptoms was May 31, 2022. 12:14 Method Of Arrival: Ambulatory 12:14 Acuity: BOB 3 hb 12:15 Initial Sepsis Screen: Does the patient meet any 2 criteria? No. Patient's initial hb sepsis screen is negative. Does the patient have a suspected source of infection? No. Patient's initial sepsis screen is negative. Triage Assessment: 12:17 General: Appears in no apparent distress. Behavior is agitated, anxious, restless. hb Pain: Pain currently is 3 out of 10 on a pain scale. EENT: bleeding from left nare, noseclip placed on pt. Neuro: Level of Consciousness is awake, alert, obeys commands, Oriented to person, place, time, situation. Cardiovascular: Patient's skin is warm and dry. Respiratory: Respiratory effort is even, unlabored, Respiratory pattern is regular, symmetrical. GI: No signs and/or symptoms were reported involving the gastrointestinal system. : No signs and/or symptoms were reported regarding the genitourinary system. Derm: Skin is pink, warm \T\ dry. Musculoskeletal: No signs and/or symptoms reported regarding the musculoskeletal system. Historical: - Allergies: 12:16 No Known Allergies; hb - PMHx: 12:16 Depression; GALLSTONES; High Cholesterol; Hypertension; Kidney stones; hb - PSHx: 12:16 Implantation of cardiac pacemaker; Repair of inguinal hernia; hb - Immunization history:: Adult Immunizations up to date. - Social history:: Smoking status: Patient denies any tobacco usage or history of. Screenin:18 Abuse screen: Denies threats or abuse. Denies injuries from another. Nutritional hb screening: No deficits noted. Tuberculosis screening: No symptoms or risk factors identified. Fall Risk None identified. Assessment: 12:18 General: SEE TRIAGE ASSESSMENT. hb 13:30 Reassessment: Pt diaphoretic, slow to respond, BIOLOGICS SPECIALIST Robert called to bedside. hb 15:19 Reassessment: Patient appears in no apparent distress at this time. Patient is alert, hb oriented x 3, equal unlabored respirations, skin warm/dry/pink. Patient denies pain at this time. Patient states feeling better. Patient states symptoms have improved. Vital Signs: 12:14 BP 122 / 81; Pulse 75; Resp 16; Temp 97.9; Pulse Ox 98% on R/A; Pain 3/10; hb 15:00 BP 138 / 88; Pulse 74; Resp 18; Pulse Ox 99% on R/A; hb ED Course: 12:00 Patient arrived in ED. rg4 12:04 Dennis Jones is PHCP. jl9 12:04 Chuck Washington DO is Attending Physician. jl9 12:16 Triage completed. hb 12:16 Arm band placed on. hb 12:18 Patient has correct armband on for positive identification. hb 13:40 Amber Torres, RN is Primary Nurse. hb 13:54 Facial Bones <3 Views XRAY In Process Unspecified. EDMS 14:09 Initial lab(s) drawn, by me, sent to lab. Inserted saline lock: 22 gauge in left dh3 forearm, using aseptic technique. Blood collected. 15:18 No provider procedures requiring assistance completed. IV discontinued, intact, hb bleeding controlled, No redness/swelling at site. Administered Medications: 14:18 Drug: NS 0.9% 1000 ml Route: IV; Rate: 1000 ml; Site: left antecubital; hb 15:14 Follow up: Response: No adverse reaction; IV Status: Infusion continued; IV Intake: hb 1000ml Medication: 12:18 VIS not applicable for this client. hb Intake: 15:14 IV: 1000ml; Total: 1000ml. hb Outcome: 14:54 Discharge ordered by jl9 15:18 Discharged to home via wheelchair, with family. hb 15:18 Condition: stable 15:18 Discharge instructions given to patient, family, Instructed on discharge instructions, follow up and referral plans. medication usage, Demonstrated understanding of instructions, follow-up care, medications. 15:19 Patient left the ED. hb Signatures: Dispatcher [employer] EDAmber Pabon RN RN Sherrie Hendricks4 Maria L Davis 3 Dennis Jones9
[2022-05-31 16:15] VITALS: TEMP 97.9
[2022-05-31 16:17] VITALS: BP 138/88; O2SAT 99
== END 2022-05-31 15:19 | disposition home or self-care (01) ==
LOC: ER 12:00
DX: R04.0 Epistaxis (principal); J34.89 Other specified disorders of nose and nasal sinuses; I10 Essential (primary) hypertension; Z95.0 Presence of cardiac pacemaker
CPT/HCPCS: 30901; 85025; 80048; 36415; 70140; 96360; 99284; J7030

== ENCOUNTER 2024-12-17 07:00 | Day surgery (SDC) | payer OTHER ==
--- NOTE | 2024-12-09 10:24 | RAD REPORT ---
EXAMINATION: TWO VIEW CHEST XR CLINICAL INDICATION: Pre-op pending heart catheterization TECHNIQUE: 2 views of the chest was performed. COMPARISON: 01/16/2022 FINDINGS: The lungs are well inflated and clear. The heart is moderately enlarged with multilead pacer/defibril lator device. No displaced fractures evident.
[2024-12-09 10:41] LABS: Absolute Eosinophils 0.2 K/uL (0-0.5); Absolute Lymphocytes (CBC) 2.8 K/uL (0.7-4.9); Absolute Monocytes 0.5 K/uL (0.1-1.3); Absolute Neutrophil 2.4 K/uL (1.8-8.0); Basophils % 0.8 % (0-1.3); Eosinophils % 2.8 % (0-4.4); Hematocrit 39.4 % (36.0-45.0); Hemoglobin 12.9 g/dL (12.0-15.0); Lymphocytes % 47.3 % (15.3-44.8); MCHC 32.8 g/dL (32.0-36.0); MCV 91.4 fL (80-100); MPV 7.2 fL (7.6-11.3); Monocytes % 8.4 % (3.3-12.3); Neutrophils % 40.7 % (41.7-73.7); Nucleated Red Blood Cells % 0.2 % (0-0); Platelets 281 thou/uL (152-406); RBC Red Blood Cell Count 4.31 M/uL (3.86-4.86); Red Cell Distribution Width 15.8 % (12.1-15.2)
[2024-12-09 10:51] LABS: PTT, Activated Partial Thromb 25.4 SECONDS (27.2-37.4); Protime INR 1.06
[2024-12-09 11:10] LABS: Anion Gap 7.2 mEq/L (5.0-15.0); Potassium 4.2 mEq/L (3.5-5.1)
--- NOTE | 2024-12-11 14:48 | EKG ---
Test Date: 2024-12-09 Test Time: 09:24:25 Eb[employer] Reseller: [employer]ENET[employer] MEASUREMENT RESULTS: Intervals: Rate: 60 KS: QRSD: 216 QT: 510 QTc: 510 [place]: P: KS: QRS: -64 T: 91 INTERPRETIVE STATEMENTS: AV sequential or dual chamber electronic pacemaker Compared to ECG 08/05/2021 06:53:07 No significant changes Electronically Signed On 12-11-24 14:42:52 CDT by Deep Moreno
[2024-12-17] MEDS ORDERED: HEPA 1000U/500MLS 2,000 UNIT/1,000 ML BAG IV ONE (07:20)
[2024-12-17] MEDS ORDERED: HEPARIN 10,000 UNIT/10 ML VIAL IV ONE (07:20)
[2024-12-17] MEDS ORDERED: NA CHLORIDE 0.9% 500 ML ONE (07:21)
[2024-12-17] MEDS ORDERED: CLOPIDOGREL 75 MG TABLET ONE (07:21)
[2024-12-17] MEDS ORDERED: MIDAZOLAM HCL 2 MG/2 ML INJ ONE (07:21)
[2024-12-17] MEDS ORDERED: LIDOCAINE 1% 20 ML MDV ONE (07:21)
[2024-12-17] MEDS ORDERED: HEPARIN 5000 UNIT/ML 1 ML VIAL ONE (07:21)
[2024-12-17] MEDS ORDERED: ATROPINE SULF 1 MG/10 ML SYR IV ONE (07:21)
[2024-12-17] MEDS ORDERED: ASPIRIN 325 MG TAB ONE (07:22)
[2024-12-17] MEDS ORDERED: TICAGRELOR 90 MG TABLET PO ONE (07:22)
[2024-12-17] MEDS ORDERED: FENTANYL CITR 100 MCG/2 ML ONE (07:22)
[2024-12-17] MEDS ORDERED: NITROGLYCERIN/D5W 50 MG/250 ML BTL IV ONE (07:35)
[2024-12-17 10:17] VITALS: BP 115/65; O2SAT 94
--- NOTE | 2024-12-21 13:22 | OP ---
Date of Procedure: 12/17/2024 Surgeon: Deep Moreno Procedures Performed: 1. Selective coronary angiogram. 2. Left heart catheterization. Indication For Procedure: Unstable angina. Complications: None. Estimated Blood Loss: Less than 50 cc. Access: Right radial, closed by TR band. Sedation Time: 20 minutes with 1 of Versed and 25 of fentanyl. Description Of Procedure: After risks, benefits, and alternatives were explained to the patient, the patient agreed to proceed with procedure and signed informed consent. The patient was brought back to the laboratory aide, prepped and draped in sterile fashion. Time-out was performed. Sedation was admini stered. Next, right radial access was obtained using ultrasound-guided micropuncture technique. Tig er 4 catheter was advanced over a J-wire to the LV cavity. LVEDP was obtained. Pullback did not wilner w any gradient. Same catheter was used for selective angiogram of the left and right coronary system s. At the end of procedure, catheter was removed over a J-wire. Sheath was removed. TR band was ap plied. Hemostasis was achieved. The patient was moved back to recovery in stable condition. Findings: 1. Left main, normal. 2. LAD, mid stent patent and mild luminal irregularities. 3. Left circ, mild luminal irregularities. 4. RCA, mild luminal irregularities. 5. LVEDP: 5 mmHg. Assessment And Plan: 1. Patent mid LAD stent. 2. Continue medical management. EMI/RAJ Voice ID: [id number] Report ID: [id number]
== END 2024-12-17 10:14 | disposition home or self-care (01) ==
LOC: CCL 07:00
PROVIDERS: ATTEND Internal Medicine Interventional Cardiology
DX: I25.110 Atherosclerotic heart disease of native coronary artery with unstable angina pectoris (principal); E11.9 Type 2 diabetes mellitus without complications; E78.5 Hyperlipidemia, unspecified; Z79.4 Long term (current) use of insulin; Z95.5 Presence of coronary angioplasty implant and graft; Z95.0 Presence of cardiac pacemaker
CPT/HCPCS: 93005; 85025; 80048; 36415; 85610; 82947; 85730; 71046; 93458; 76937; C1893; Q9967; J1644; J2003; J2250; J3010; J7040; 99152; 99153; J0461